=== PATIENT | male | born 1950 | race Caucasian/White ===

== ENCOUNTER 2025-02-19 14:27 | Inpatient (IN) | payer MEDICARE ==
[2025-02-19 14:56] LABS: Basophils # (A) 0.03 10*3/uL (0.00-0.10); Basophils % (A) 0.2 %; Eosinophils # (A) 0.04 10*3/uL (0.04-0.35); Eosinophils % (A) 0.3 %; HCT 39.5 % (39.6-50.0); HGB 13.5 g/dL (13.0-17.0); Lymphocytes # (A) 2.06 10*3/uL (0.90-5.00); Lymphocytes % (A) 14.3 %; MCH 32.4 pg (27.0-32.0); MCHC 34.2 g/dL (32.0-37.0); MCV 94.7 fL (80.0-97.0); Mean Platelet Volume 9.9 fL (9.5-12.2); Monocytes % (A) 6.9 %; Neutrophils % (A) 77.8 %; Platelet Count 244 10*3/uL (140-440); RBC 4.17 10*6/uL (4.40-5.60); RDW 14.7 % (11.5-14.5)
[2025-02-19 15:06] LABS: INR 1.3 (<1.2); Partial Thromboplastin Time 39.9 sec (22.0-30.0); Prothrombin Time 14.2 sec (10.0-12.5)
[2025-02-19] MEDS: HYDROmorphone 1 MG/ML 1 ML SYRINGE IVP STA ×2 (15:14→16:36)
[2025-02-19 15:24] LABS: ALT 17 U/L (4-49); AST 24 U/L (17-59); African American GFR (CKD) >90 (>60 ml/min/1.73 sqM); Albumin 2.9 g/dL (3.5-5.0); Alkaline Phosphatase 86 U/L (38-126); Anion Gap 11 mmol/L; Blood Urea Nitrogen 17 mg/dL (9-20); Calcium 8.2 mg/dL (8.4-10.2); Carbon Dioxide 20 mmol/L (22-30); Chloride 104 mmol/L (98-107); Glucose 151 mg/dL (74-99); Non-African American GFR(CKD) 84 (>60 ml/min/1.73 sqM); Sodium 135 mmol/L (137-145); Total Bilirubin 1.7 mg/dL (0.2-1.3); Total Protein 6.8 g/dL (6.3-8.2)
--- NOTE | 2025-02-19 15:30 | ED ---
General Adult HPI - General Chief complaint: Back Pain/Injury Stated complaint: Back pain, knee pain Time Seen by Provider: 02/19/25 14:29 Source: patient, EMS, RN notes reviewed, old records reviewed Mode of arrival: EMS Limitations: no limitations - History of Present Illness Initial comments: 74-year-old male presenting with low back pain which has worsened over the past 4 months. Patient was brought in by paramedics due to inability to ambulate s econdary to pain. He was given ketamine and route for pain control this did moderately improve his symptoms. He states he normally takes [place] but has not taken it in the past 24 hours. He is scheduled to follow-up with orthopedics regarding this acute on chronic back pain but has not seen them to date. He states he has a remote history of back surgery. He also complains of left knee pain and left ankle pain without specific injury. History is somewhat limited secondary to the patient being in moderate to severe pain. - Related Data Allergies Allergy/AdvReac Type Severity Reaction Status Date / Time No Known Allergies Allergy Verified 02/19/25 14:39 Review of Systems ROS Statement: Those systems with pertinent positive or pertinent negative responses have been documented in the HPI. ROS Other: All systems not noted in ROS Statement are negative. Past Medical History Past Medical History: Heart Failure, Hypertension Additional Past Medical History / Comment(s): gout, chronic back pain, cerebral palsy History of Any Multi-Drug Resistant Organisms: None Reported Past Surgical History: Back Surgery Past Psychological History: No Psychological Hx Reported Smoking Status: Current every day smoker Past Alcohol Use History: None Reported Past Drug Use History: None Reported General Exam Limitations: no limitations General appearance: alert, in distress Head exam: Present: atraumatic, normocephalic Eye exam: Present: normal appearance, PERRL ENT exam: Present: normal exam Neck exam: Present: normal inspection. Absent: tenderness, meningismus Respiratory exam: Present: normal lung sounds bilaterally. Absent: respiratory distress, wheezes Cardiovascular Exam: Present: regular rate, normal rhythm GI/Abdominal exam: Present: soft. Absent: distended, tenderness, guarding Extremities exam: Present: joint swelling (left Knee, left ankle) Back exam: Present: other (Exam limited by positioning, patient is unable to roll over) Neurological exam: Present: alert, oriented X3 Psychiatric exam: Present: agitated, anxious Skin exam: Present: warm, dry, intact Course Vital Signs 02/19/25 02/19/25 14:29 16:17 Temperature 98.4 F Pulse Rate 87 78 Respiratory 21 16 Rate Blood Pressure 151/98 147/84 O2 Sat by Pulse 96 98 Oximetry Medical Decision Making - Medical Decision Making Was pt. sent in by a medical professional or institution ([facility], AMUSEMENT MACHINE MECHANIC, urgent care, hospital, or skilled nursing...) When possible be specific @ -No Did you speak to anyone other than the patient for history (EMS, parent, family, police, friend...)? What history was obtained from this source @ -No Did you review nursing and triage notes (agree or disagree)? Why? @ -I reviewed and agree with nursing and triage notes Were old charts reviewed (outside hosp., previous admission, EMS record, old EKG, old radiological studies, urgent care reports/EKG's, skilled nursing records)? Report findings @ -No old charts were reviewed Differential Musculoskeletal Muscular strain, contusion, ligament sprain, fracture, arthritis, septic arthritis, bursitis, cellulitis, muscle spasm, nerve compression, DVT, arterial occlusion, herpes zoster, electrolyte abnormality, tumor.... This is not meant to be in all inclusive list EKG interpreted by me (3pts min.). @ -As above X-rays interpreted by me (1pt min.). @ -X-ray of the left ankle negative for displaced fracture CT interpreted by me (1pt min.). @ -CT lumbar spine negative for acute process, degenerative change with previous hardware U/S interpreted by me (1pt. min.). @ -None done What testing was considered but not performed or refused? (CT, X-rays, U/S, labs)? Why? @ -None What meds were considered but not given or refused? Why? @ -None Did you discuss the management of the patient with other professionals (professionals i.e. SACHI Hall, AMUSEMENT MACHINE MECHANIC, lab, RT, psych nurse, mental health social worker, vice president of academic affairs, teacher, fourth officer, watch case polisher)? Give summary @Dr. Ramy junior physician group Was smoking cessation discussed for >3mins.? @ -No Was critical care preformed (if so, how long)? @ -No Were there social determinants of health that impacted care today? How? (Homelessness, low income, unemployed, alcoholism, drug addiction, transportation, low edu. Level, literacy, decrease access to med. care, [facility], rehab)? @ -No Was there de-escalation of care discussed even if they declined (Discuss DNR or withdrawal of care, Hospice)? DNR status @ -No What co-morbidities impacted this encounter? (DM, HTN, Smoking, COPD, CAD, Cancer, CVA, ARF, Chemo, Hep., AIDS, mental health diagnosis, sleep apnea, morbid obesity)? @Chronic low back pain Was patient admitted / discharged? Hospital course, mention meds given and route, prescriptions, significant lab abnormalities, going to OR and other pertinent info. @74-year-old male with 4 months of worsening low back pain. Patient is an extremis upon arrival, had been given ketamine by paramedics with minimal improvement. Given Dilaudid in the emergency department able to obtain CT imaging which was negative for acute process. Patient will require admission for pain control and orthopedic evaluation. Undiagnosed new problem with uncertain prognosis? @ -No Drug Therapy requiring intensive monitoring for toxicity (Heparin, Nitro, Insulin, Cardizem)? @ -No Were any procedures done? @ -No Diagnosis/symptom? @Intractable lumbar back pain Acute, or Chronic, or Acute on Chronic? @Acute on chronic Uncomplicated (without systemic symptoms) or Complicated (systemic symptoms)? @ -Default Side effects of treatment? @ -No Exacerbation, Progression, or Severe Exacerbation? @ -No Poses a threat to life or bodily function? How? (Chest pain, [place], [place], pneumonia, PE, COPD, DKA, ARF, appy, cholecystitis, CVA, Diverticulitis, Homicidal, Suicidal, threat to staff... and all critical care pts) @ -[Yes, debility - Lab Data Result diagrams: 02/19/25 14:33 02/19/25 14:34 Lab Results 02/19/25 02/19/25 02/19/25 Range/Units 14:33 14:34 14:34 WBC 14.40 H (4.50-10.00) 10*3/uL RBC 4.17 L (4.40-5.60) 10*6/uL Hgb 13.5 (13.0-17.0) g/dL Hct 39.5 L (39.6-50.0) % MCV 94.7 (80.0-97.0) fL MCH 32.4 H (27.0-32.0) pg MCHC 34.2 (32.0-37.0) g/dL Plt Count 244 (140-440) 10*3/uL MPV 9.9 (9.5-12.2) fL Immature Gran % (Auto) 0.5 % Neutrophils % 77.8 % Lymphocytes % 14.3 % Monocytes % 6.9 % Eosinophils % 0.3 % Basophils % 0.2 % Immature Gran # 0.07 H (0.00-0.04) 10*3/uL Neutrophils # 11.20 H (1.80-7.70) 10*3/uL Lymphocytes # 2.06 (0.90-5.00) 10*3/uL Monocytes # 1.00 (0.20-1.00) 10*3/uL Eosinophils # 0.04 (0.04-0.35) 10*3/uL Basophils # 0.03 (0.00-0.10) 10*3/uL PT 14.2 H (10.0-12.5) sec INR 1.3 H (<1.2) APTT 39.9 H (22.0-30.0) sec Sodium 135 L (137-145) mmol/L Potassium 4.0 (3.5-5.1) mmol/L Chloride 104 (98-107) mmol/L Carbon Dioxide 20 L (22-30) mmol/L Anion Gap 11 mmol/L BUN 17 (9-20) mg/dL Creatinine 0.89 (0.66-1.25) mg/dL Est GFR (CKD-EPI)AfAm >90 (>60 ml/min/1.73 sqM) Est GFR (CKD-EPI)NonAf 84 (>60 ml/min/1.73 sqM) Glucose 151 H (74-99) mg/dL Calcium 8.2 L (8.4-10.2) mg/dL Total Bilirubin 1.7 H (0.2-1.3) mg/dL AST 24 (17-59) U/L ALT 17 (4-49) U/L Alkaline Phosphatase 86 (38-126) U/L Total Protein 6.8 (6.3-8.2) g/dL Albumin 2.9 L (3.5-5.0) g/dL Disposition Clinical Impression: Lumbar back pain, Chronic intractable pain Disposition: ADMITTED IP TO THIS [facility] Condition: Stable Is patient prescribed a controlled substance at d/c from ED?: No Referrals: Ryan Villalta DO [Primary Care Provider] - 1-2 days Time of Disposition: 16:44
--- NOTE | 2025-02-19 15:47 | CT ---
EXAMINATION TYPE: CT lumbar spine wo con DATE OF EXAM: 02/19/2025 3:36 PM COMPARISON: None. CLINICAL INDICATION: Male, 74 years old with history of severe pain; PHH, low back pain with radiatio n bilaterally to extremeties TECHNIQUE: Multiple axial images were obtained from the midportion of T11 through the sacroiliac elyse nts. Soft tissue and bone windows in coronal and sagittal planes were obtained and reviewed. 3-D ref ormats of the bones were created on a separate workstation and submitted for review. CT DLP: 1907.6 mGycm, Automated exposure control for dose reduction was used. FINDINGS: Partially visualized emphysematous changes versus chronic interstitial lung disease in the lower lobe s. Aortobiiliac endovascular stent graft. Previous cholecystectomy. Alignment: There are 5 lumbar type vertebral bodies within normal alignment. Bone: No evidence of fracture is identified. Posterior fusion hardware visualized spanning L3-L5 with L3-4 and L4-L5 intervertebral disc spacer de vices. Minimal anterolisthesis of L4 on L5 and minimal retrolisthesis of L5 on S1. Preserved lordotic curvature of the lumbosacral spine. Osseous structures appear demineralized. Discs: T12-L1: No spinal canal or neural foraminal stenosis is identified. L1-L2: No spinal canal or neural foraminal stenosis is identified. L2-L3: Facet arthropathy and ligamentum flavum hypertrophy cause mild to moderate bilateral neural fo raminal narrowing. No high-grade spinal canal stenosis. L3-L4: Severely limited evaluation of the spinal canal due to streak artifact. Within these limitatio ns, no definite high-grade spinal canal stenosis. No periprosthetic lucency or acute hardware defecat ion. L4-L5: Intervertebral disc spacer device. Severely limited evaluation of the spinal canal due to stre ak artifact. There is limitation, no definite high-grade spinal canal stenosis. L5-S1: No high-grade spinal canal stenosis. Other: None IMPRESSION: 1. No acute fracture or traumatic subluxation. 2. Posterior fusion hardware visualized spanning L3-L5 with L3-L4 and L4-L5 intervertebral disc spac er devices. No high-grade spinal canal stenosis. No acute hardware complication. [facility], , 02/19/2025 3:45 PM
--- NOTE | 2025-02-19 16:29 | XR ---
EXAMINATION TYPE: XR knee complete LT DATE OF EXAM: 02/19/2025 4:14 PM COMPARISON: None CLINICAL INDICATION: Male, 74 years old with history of pain and swelling; PHH, pain TECHNIQUE: XR knee complete LT views submitted.. FINDINGS: Questionable cortical step-off along the medial tibial plateau versus irregular osteophyte, seen on single view only.. Moderate tricompartmental right knee degenerative arthritis. Diffuse subc utaneous edema/swelling. Small suprapatellar joint effusion. IMPRESSION: 1. Subcutaneous edema surrounding the left knee with questionable cortical step-off along the medial tibial plateau. If there is underlying clinical concern for acute fracture, further evaluation with dedicated CT of the left knee would be recommended. 2. Moderate tricompartmental left knee degenerative arthritis and small suprapatellar joint effusion . [facility], , 02/19/2025 4:26 PM
--- NOTE | 2025-02-19 16:30 | XR ---
EXAMINATION TYPE: XR ankle complete LT DATE OF EXAM: 02/19/2025 4:15 PM COMPARISON: None CLINICAL INDICATION: Male, 74 years old with history of pain and swelling; PHH, pain TECHNIQUE: XR ankle complete LT; ankle is imaged in frontal, lateral and oblique projections. FINDINGS: Osseous structures are demineralized. No acute fracture or dislocation. Tibiotalar joint degenerative arthritic changes. Vascular calcifications. Numerous calcific densities adjacent to the medial malle olus, likely sequela of previous trauma. Soft tissue swelling/edema surrounding the left ankle. Sever e midfoot degenerative changes seen on lateral view. IMPRESSION: Subcutaneous edema without definite acute fracture or dislocation. [facility], , 02/19/2025 4:28 PM
[2025-02-19] MEDS ORDERED: ACETAMINOPHEN TAB 325 MG TAB PO PRN (16:40)
[2025-02-19] MEDS ORDERED: NALOXONE 0.4 MG/ML 1 ML VIAL IV PRN (16:40)
[2025-02-19] MEDS ORDERED: ONDANSETRON 4 MG/2 ML VIAL IVP PRN (16:40)
[2025-02-19] MEDS ORDERED: HYDROcodone/APAP 10-325MG 1 EACH TAB PO PRN (18:12)
--- NOTE | 2025-02-19 19:11 | P.HPIM ---
History of Present Illness H&P Date: 02/19/25 74 year old M with PMH of A Fib, Gout, HTN, chronic lower back pain presents with intractable back pain. Progressively getting worse over the past 4 months after sustaining a fall which resulted in him landing on his tailbone. Pain is 10/10, throbbing in nature with occasional radiation to bilateral lower extremities. Pain worse with movement and alleviated with rest. Takes [place] 10 Q2H at home. He denies any bladder or bowel incontinence, saddle anesthesia. No numbness/weakness/tingling of the extremities. He reports difficulties with his ADL and IADLs at home. In the ED he underwent extensive evaluation. BP 151/98, HR 87, T 98.4F, RR 21, 96% on RA. CBC, Coag panel, CMP significant for WBC 14.4, RBC 4.17, Hct 39.5, PT 14.2, INR 1.3, APTT 39.9, Na 135, bicarb 20, glu 151, Ca 8.2, T. Bili 1.7, alb 2.9. Ankle XR L shows edema. Knee XR L shows edema with questionable cortical step off along the medial tibial plateau. CT L spine shows no high grade spinal canal stenosis. Patient is admitted for intractable pain and Ortho evaluation. General: moderate distress, appears at stated age Derm: warm, dry Head: atraumatic, normocephalic, symmetric Mouth: no lip lesion, mucus membranes moist Cardiovascular: S1 S2 irreg. Systolic murmur. Lungs: Decreased BS bilaterally, no accessory muscle use Ext: no gross muscle atrophy, no edema, no contractures Neuro: No focal neurologic deficits. Psych: Alert and oriented. Based on my assessment of this patient, this patient meets a high complexity level of care. Intractable lower back pain with history of L3-5 fusion: Dilaudid 1 mg IV Q3H PRN pain, [place] 10 Q4H PRN pain. Fall precautions. PT and OT consult. Ortho consult. Leukocytosis: Likely reactive. No signs of active infection. Monitor fever profile. Supratherapeutic INR: Likely due to Pradaxa. A Fib: Pradaxa 150 mg PO BID. Verapamil 180 mg PO BID. Gout: Allopurinol 100 mg PO BID. HTN: Lasix 40 mg PO QD. Losartan 25 mg PO QD. CODE STATUS: FULL CODE DVT Prophylaxis: Pradaxa GI Prophylaxis: Designated medical POA if patient is not able to make medical decisions for themselves: I have reviewed the following medical sales consultant notes: ED note. I have reviewed the results of the following tests: As above. I have ordered the following tests: As above. I have discussed the care of this patient with the following independent historian: MONISHA. I have independently interpreted the following test below: I have discussed the management of this patient with the following physician: ED physician. Past Medical History Past Medical History: Heart Failure, Hypertension Additional Past Medical History / Comment(s): gout, chronic back pain, cerebral palsy History of Any Multi-Drug Resistant Organisms: None Reported Past Surgical History: Back Surgery Past Psychological History: No Psychological Hx Reported Smoking Status: Current some day smoker Past Alcohol Use History: None Reported Past Drug Use History: None Reported - Past Family History Mother Family Medical History: No Reported History Medications and Allergies Home Medications Medication Instructions Recorded Confirmed Type Cetirizine HCl [Zyrtec] 10 mg PO DAILY 02/19/25 02/19/25 History Dabigatran [Pradaxa] 150 mg PO BID 02/19/25 02/19/25 History Furosemide [Lasix] 40 mg PO DAILY 02/19/25 02/19/25 History HYDROcodone/APAP 10-325MG [[place] 1 tab PO Q2H MDD 8 tabs 02/19/25 02/19/25 History 10-325] Losartan [Cozaar] 25 mg PO DAILY 02/19/25 02/19/25 History Meclizine [Antivert] 25 mg PO TID PRN 02/19/25 02/19/25 History Potassium Chloride ER [K-Dur 20] 20 meq PO DAILY 02/19/25 02/19/25 History Verapamil HCl [Verapamil ER] 180 mg PO BID 02/19/25 02/19/25 History allopurinoL 100 mg PO BID 02/19/25 02/19/25 History Allergies Allergy/AdvReac Type Severity Reaction Status Date / Time No Known Allergies Allergy Verified 02/19/25 17:20 Physical Exam Vitals: Vital Signs Temp Pulse Pulse Resp BP BP Pulse Ox 02/19/25 17:51 97.8 F 90 20 151/83 96 02/19/25 17:09 98.2 F 85 18 156/79 96 02/19/25 16:17 78 16 147/84 98 02/19/25 14:29 98.4 F 87 21 151/98 96 Intake and Output 02/19/25 02/19/25 02/19/25 06:59 14:59 22:59 Intake Total 60 Output Total 200 Balance -140 Intake: Oral 60 Output: Urine 200 Other: Weight 111.13 kg 111.13 kg Results CBC & Chem 7: 02/19/25 14:33 02/19/25 14:34 Labs: Abnormal Lab Results - Last 24 Hours (Table) 02/19/25 02/19/25 02/19/25 Range/Units 14:33 14:34 14:34 WBC 14.40 H (4.50-10.00) 10*3/uL RBC 4.17 L (4.40-5.60) 10*6/uL Hct 39.5 L (39.6-50.0) % MCH 32.4 H (27.0-32.0) pg Immature Gran # 0.07 H (0.00-0.04) 10*3/uL Neutrophils # 11.20 H (1.80-7.70) 10*3/uL PT 14.2 H (10.0-12.5) sec INR 1.3 H (<1.2) APTT 39.9 H (22.0-30.0) sec Sodium 135 L (137-145) mmol/L Carbon Dioxide 20 L (22-30) mmol/L Glucose 151 H (74-99) mg/dL Calcium 8.2 L (8.4-10.2) mg/dL Total Bilirubin 1.7 H (0.2-1.3) mg/dL Albumin 2.9 L (3.5-5.0) g/dL Thrombosis Risk Factor Assmnt - Choose All That Apply Each Risk Factor Represents 3 Points: Age 75 years or older Thrombosis Risk Factor Assessment Total Risk Factor Score: 3 Thrombosis Risk Factor Assessment Level: Moderate Risk
[2025-02-19] MEDS: allopurinoL 100 MG TAB PO SCH (19:38)
[2025-02-19] MEDS: DABIGATRAN 150 MG CAP PO SCH (19:38)
[2025-02-19] MEDS: VERAPAMIL SR 180 MG TABLET.ER PO SCH (19:38)
[2025-02-19] MEDS: HYDROcodone/APAP 10-325MG 1 EACH TAB PO SCH (19:38)
[2025-02-19] MEDS: HYDROmorphone 1 MG/ML 1 ML SYRINGE IVP PRN (19:40)
[2025-02-19] MEDS: MECLIZINE 25 MG TAB PO PRN (21:16)
[2025-02-19] MEDS: ARTIFICIAL TEARS-HYPROMELLOSE DROPS 15 ML BTL BOTH EYES PRN (21:16)
[2025-02-20] MEDS: CYCLOBENZAPRINE 5 MG TAB PO STA (05:15)
[2025-02-20] MEDS: tiZANidine 4 MG TAB PO ONE (06:19)
[2025-02-20] MEDS: LOSARTAN 25 MG TAB PO SCH (07:50)
[2025-02-20] MEDS: FUROSEMIDE 40 MG TAB PO SCH (07:50)
[2025-02-20] MEDS: POTASSIUM CHLORIDE ER 20 MEQ TAB.ER PO SCH (07:50)
--- NOTE | 2025-02-20 10:51 | P.CNOR ---
History of Present Illness - [facility] Consult date: 02/20/25 Consult reason: low back pain History of present illness: This is a 74-year-old male admitted with intractable low back pain. He has history of lumbar fusion from L3-5 many years ago. He states that Dr. Halle Smith did his surgery. He states that he has been told that his "hardware is falling apart". He had a fall approximately 4 months ago where he lost his balance and landed directly on his tailbone. He states that he has had pain in his low back ever since that fall which is gotten progressively worse. He also complains of left knee and ankle pain. He has history of cerebral palsy. He denies numbness or tingling down the legs. He has occasional pain down into the legs from his back. He denies bowel or bladder dysfunction. Past Medical History Past Medical History: Heart Failure, Hypertension Additional Past Medical History / Comment(s): gout, chronic back pain, cerebral palsy History of Any Multi-Drug Resistant Organisms: None Reported Past Surgical History: Back Surgery Past Psychological History: No Psychological Hx Reported Smoking Status: Current some day smoker Past Alcohol Use History: None Reported Past Drug Use History: None Reported - Past Family History Mother Family Medical History: No Reported History Medications and Allergies Home Medications Medication Instructions Recorded Confirmed Type Cetirizine HCl [Zyrtec] 10 mg PO DAILY 02/19/25 02/19/25 History Dabigatran [Pradaxa] 150 mg PO BID 02/19/25 02/19/25 History Furosemide [Lasix] 40 mg PO DAILY 02/19/25 02/19/25 History HYDROcodone/APAP 10-325MG [[place] 1 tab PO Q2H MDD 8 tabs 02/19/25 02/19/25 History 10-325] Losartan [Cozaar] 25 mg PO DAILY 02/19/25 02/19/25 History Meclizine [Antivert] 25 mg PO TID PRN 02/19/25 02/19/25 History Potassium Chloride ER [K-Dur 20] 20 meq PO DAILY 02/19/25 02/19/25 History Verapamil HCl [Verapamil ER] 180 mg PO BID 02/19/25 02/19/25 History allopurinoL 100 mg PO BID 02/19/25 02/19/25 History Allergies Allergy/AdvReac Type Severity Reaction Status Date / Time No Known Allergies Allergy Verified 02/19/25 17:20 Physical Examination This is a 74-year-old male in no acute distress. He is alert and oriented x 3. Exam of the thoracic and lumbar spine reveal a well-healed scar about the lower lumbar region. There are no open wounds or abrasions. There is tenderness to palpation about the lower lumbar and sacral spine. Nontender over the surgical scar. Exam of the lower extremities reveals a left knee effusion. There is no erythema or ecchymosis. He has full range of motion of bilateral knees. There is minimal tenderness with palpation about the medial and lateral joint line bilaterally. There is a scar about the medial foot. He has difficulty moving the left ankle. Nontender over the left ankle. Full foot and ankle motion on the right. Neurovascular status to the lower extremities is intact. Results X-rays of the left knee reveals cortical irregularity and cystic changes to the proximal tibia on the medial aspect. There are no obvious acute fractures. There is moderate degenerative change noted. X-rays of the left ankle reveal diffuse osteoarthritis and multiple calcifications. No acute fractures noted. CT of the lumbar spine reveals diffuse degenerative changes and spurring. There is a posterior lumbar fusion noted from L3-L5. There is no gross lucency of the hardware noted on CT scan. There are no acute fractures noted. - Labs Labs: Abnormal Lab Results - Last 24 Hours (Table) 02/19/25 02/19/25 02/19/25 Range/Units 14:33 14:34 14:34 WBC 14.40 H (4.50-10.00) 10*3/uL RBC 4.17 L (4.40-5.60) 10*6/uL Hct 39.5 L (39.6-50.0) % MCH 32.4 H (27.0-32.0) pg Immature Gran # 0.07 H (0.00-0.04) 10*3/uL Neutrophils # 11.20 H (1.80-7.70) 10*3/uL PT 14.2 H (10.0-12.5) sec INR 1.3 H (<1.2) APTT 39.9 H (22.0-30.0) sec Sodium 135 L (137-145) mmol/L Carbon Dioxide 20 L (22-30) mmol/L Glucose 151 H (74-99) mg/dL Calcium 8.2 L (8.4-10.2) mg/dL Total Bilirubin 1.7 H (0.2-1.3) mg/dL Albumin 2.9 L (3.5-5.0) g/dL H & H 02/19/25 Range/Units 14:33 Hgb 13.5 (13.0-17.0) g/dL Hct 39.5 L (39.6-50.0) % Coagulation 02/19/25 Range/Units 14:34 INR 1.3 H (<1.2) Result Diagrams: 02/19/25 14:33 02/19/25 14:34 Assessment and Plan (1) Left knee pain Current Visit: Yes Status: Acute Code(s): M25.562 - PAIN IN LEFT KNEE SNOMED Code(s): 0205206793 (2) Chronic intractable pain Current Visit: Yes Status: Acute Code(s): G89.29 - OTHER CHRONIC PAIN SNOMED Code(s): 995841361 (3) Lumbar back pain Current Visit: Yes Status: Acute Code(s): M54.50 - LOW BACK PAIN, UNSPECIFIED SNOMED Code(s): 626420261 Plan: The clinical and x-ray findings are discussed with the patient. With regard to his low back, it is recommended that he be evaluated by pain management. The patient is requesting that he have back surgery on this visit to have his hardware exchanged. I explained to the patient that this is not recommended at this time. There is no gross lucency or failure of the hardware. He will follow-up with spine service. With regard to the left knee pain it is recommended he have a CT scan for further evaluation. There is suspicion for a subacute/remote fracture of the proximal tibia. We will follow-up with CT scan results.
--- NOTE | 2025-02-20 11:45 | P.PN ---
Subjective Progress Note Date: 02/20/25 74 year old M with PMH of A Fib, Gout, HTN, chronic lower back pain presents with intractable back pain. Progressively getting worse over the past 4 months after sustaining a fall which resulted in him landing on his tailbone. Pain is 10/10, throbbing in nature with occasional radiation to bilateral lower extremities. Pain worse with movement and alleviated with rest. Takes [place] 10 Q2H at home. He denies any bladder or bowel incontinence, saddle anesthesia. No numbness/weakness/tingling of the extremities. He reports difficulties with his ADL and IADLs at home. In the ED he underwent extensive evaluation. BP 151/98, HR 87, T 98.4F, RR 21, 96% on RA. CBC, Coag panel, CMP significant for WBC 14.4, RBC 4.17, Hct 39.5, PT 14.2, INR 1.3, APTT 39.9, Na 135, bicarb 20, glu 151, Ca 8.2, T. Bili 1.7, alb 2.9. Ankle XR L shows edema. Knee XR L shows edema with questionable cortical step off along the medial tibial plateau. CT L spine shows no high grade spinal canal stenosis. Patient is admitted for intractable pain and Ortho evaluation. 02/20 Patient was seen and examined. Reports continued lower back pain. Ortho recommends CT L knee and pain management consult. No new labs are done today. BP 100/61, HR 62, RR 18, T 97.5F, 97% on RA. General: mild distress, appears at stated age Derm: warm, dry Head: atraumatic, normocephalic, symmetric Mouth: no lip lesion, mucus membranes moist Cardiovascular: S1 S2 irreg. No murmur. Lungs: Decreased BS bilaterally, no accessory muscle use Ext: no gross muscle atrophy, no edema, no contractures Neuro: No focal neurologic deficits. Psych: Alert and oriented. Based on my assessment of this patient, this patient meets a high complexity level of care. Intractable lower back pain with history of L3-5 fusion: Dilaudid 1 mg IV Q3H PRN pain, [place] 10 Q4H PRN pain. Fall precautions. PT and OT consulted. Ortho and Pain management consulted. L knee pain: CT L knee ordered by Ortho to evaluate abnormal findings on XR. Leukocytosis: Likely reactive. No signs of active infection. Monitor fever profile. Supratherapeutic INR: Likely due to Pradaxa. Hyperbilirubinemia: Repeat CMP in the morning. Consider further workup if still elevated. A Fib: Pradaxa 150 mg PO BID. Verapamil 180 mg PO BID. Gout: Allopurinol 100 mg PO BID. HTN: Lasix 40 mg PO QD. Losartan 25 mg PO QD. CODE STATUS: FULL CODE DVT Prophylaxis: Pradaxa GI Prophylaxis: Designated medical POA if patient is not able to make medical decisions for themselves: I have reviewed the following solution consultant notes: Ortho note. I have reviewed the results of the following tests: I have ordered the following tests: CBC and CMP in the AM. I have discussed the care of this patient with the following independent historian: I have independently interpreted the following test below: I have discussed the management of this patient with the following physician: Objective - Vital Signs Vital signs: Vital Signs Temp 97.5 F L 02/20/25 08:00 Pulse 62 02/20/25 08:00 Resp 18 02/20/25 08:00 BP 100/61 02/20/25 08:00 Pulse Ox 97 02/20/25 08:00 FiO2 Intake & Output 02/19/25 02/20/25 02/20/25 18:59 06:59 18:59 Intake Total 60 Output Total 200 600 Balance -140 -600 Weight 111.13 kg Intake: Oral 60 Output: Urine 200 600 - Labs CBC & Chem 7: 02/19/25 14:33 02/19/25 14:34 Labs: Abnormal Lab Results - Last 24 Hours (Table) 02/19/25 02/19/25 02/19/25 Range/Units 14:33 14:34 14:34 WBC 14.40 H (4.50-10.00) 10*3/uL RBC 4.17 L (4.40-5.60) 10*6/uL Hct 39.5 L (39.6-50.0) % MCH 32.4 H (27.0-32.0) pg Immature Gran # 0.07 H (0.00-0.04) 10*3/uL Neutrophils # 11.20 H (1.80-7.70) 10*3/uL PT 14.2 H (10.0-12.5) sec INR 1.3 H (<1.2) APTT 39.9 H (22.0-30.0) sec Sodium 135 L (137-145) mmol/L Carbon Dioxide 20 L (22-30) mmol/L Glucose 151 H (74-99) mg/dL Calcium 8.2 L (8.4-10.2) mg/dL Total Bilirubin 1.7 H (0.2-1.3) mg/dL Albumin 2.9 L (3.5-5.0) g/dL
--- NOTE | 2025-02-20 12:19 | CT ---
EXAMINATION TYPE: CT knee LT wo con CT DLP: 395 mGycm, Automated exposure control for dose reduction was used. DATE OF EXAM: 02/20/2025 12:09 PM COMPARISON: Left knee radiograph 02/19/2025 CLINICAL INDICATION:Male, 74 years old with history of abnormal xray, hx of remote trauma; PHH, Abnor mal X-ray, history of remote trauma TECHNIQUE: Axial images were obtained of the left knee without the use of IV contrast. Additional co cindy and sagittal reformatted images and soft tissue and bone window were obtained for review. FINDINGS: Diffuse bone demineralization. There is no evidence of fracture, subluxation, or dislocatio n. Small suprapatellar and infrapatellar spurring. Small to moderate size suprapatellar joint effusio n. There is some hyperdense structure identified within the medial aspect of the joint effusion. Smal l Fallon's cyst measuring up to 1.7 cm. Prepatellar subcutaneous edema. No radiopaque foreign body kami ntified. IMPRESSION: 1. No acute fracture or dislocation. 2. Small to moderate size suprapatellar joint effusion with hemarthrosis. 3. Prepatellar subcutaneous edema. 4. Small Fallon's cyst. [facility], , 02/20/2025 12:17 PM
[2025-02-21 04:41] LABS: HCT 34.8 % (39.6-50.0); HGB 11.2 g/dL (13.0-17.0); MCH 31.9 pg (27.0-32.0); MCHC 32.2 g/dL (32.0-37.0); MCV 99.1 fL (80.0-97.0); Mean Platelet Volume 9.7 fL (9.5-12.2); Platelet Count 225 10*3/uL (140-440); RBC 3.51 10*6/uL (4.40-5.60); RDW 15.5 % (11.5-14.5); WBC 11.89 10*3/uL (4.50-10.00)
[2025-02-21 04:57] LABS: ALT 18 U/L (4-49); AST 23 U/L (17-59); African American GFR (CKD) 65 (>60 ml/min/1.73 sqM); Albumin 2.7 g/dL (3.5-5.0); Albumin/Globulin Ratio 0.8; Alkaline Phosphatase 79 U/L (38-126); Anion Gap 9 mmol/L; Blood Urea Nitrogen 29 mg/dL (9-20); Calcium 8.3 mg/dL (8.4-10.2); Carbon Dioxide 25 mmol/L (22-30); Chloride 100 mmol/L (98-107); Globulin 3.6 g/dL; Glucose 117 mg/dL (74-99); Non-African American GFR(CKD) 56 (>60 ml/min/1.73 sqM); Potassium 4.3 mmol/L (3.5-5.1); Sodium 134 mmol/L (137-145); Total Bilirubin 1.1 mg/dL (0.2-1.3); Total Protein 6.3 g/dL (6.3-8.2)
--- NOTE | 2025-02-21 09:14 | P.PN ---
Subjective Progress Note Date: 02/21/25 Principal diagnosis: Low back pain, left knee pain. This is a 74-year-old male admitted with intractable low back pain. He has history of lumbar fusion from L3-5 many years ago. He states that Dr. Neri and Dr. Smith did his surgery. He states that he has been told that his "hardware is falling apart". He had a fall approximately 4 months ago where he lost his balance and landed directly on his tailbone. He states that he has had pain in his low back ever since that fall which is gotten progressively worse. He also complains of left knee and ankle pain. He has history of cerebral palsy. He denies numbness or tingling down the legs. He has occasional pain down into the legs from his back. He denies bowel or bladder dysfunction. 02/21/2025: The patient continues to complain of severe low back pain. He had a CT of the left knee which is unremarkable. Pain management has been consulted for possible lumbar BROCK. Vital signs are stable. Objective - Vital Signs Vital signs: Vital Signs Temp 97.6 F 02/21/25 07:41 Pulse 72 02/21/25 07:41 Resp 19 02/21/25 07:41 BP 121/62 02/21/25 07:41 Pulse Ox 95 02/21/25 07:41 FiO2 Intake & Output 02/20/25 02/21/25 02/21/25 18:59 06:59 18:59 Intake Total 720 Output Total 650 500 Balance 70 -500 Intake: Oral 720 Output: Urine 650 500 - Exam This is a 74-year-old male in no acute distress. He is alert and oriented x 3. Exam of the thoracic and lumbar spine reveal a well-healed scar about the lower lumbar region. There are no open wounds or abrasions. There is tenderness to palpation about the lower lumbar and sacral spine. Nontender over the surgical scar. Exam of the lower extremities reveals a left knee effusion. There is no erythem a or ecchymosis. He has full range of motion of bilateral knees. There is minimal tenderness with palpation about the medial and lateral joint line bilaterally. There is a scar about the medial foot. He has difficulty moving the left ankle. Nontender over the left ankle. Full foot and ankle motion on the right. Neurovascular status to the lower extremities is intact. - Labs CBC & Chem 7: 02/21/25 03:52 02/21/25 03:52 Labs: Abnormal Lab Results - Last 24 Hours (Table) 02/21/25 02/21/25 Range/Units 03:52 03:52 WBC 11.89 H (4.50-10.00) 10*3/uL RBC 3.51 L (4.40-5.60) 10*6/uL Hgb 11.2 L (13.0-17.0) g/dL Hct 34.8 L (39.6-50.0) % MCV 99.1 H (80.0-97.0) fL RDW 15.5 H (11.5-14.5) % Sodium 134 L (137-145) mmol/L BUN 29 H (9-20) mg/dL Glucose 117 H (74-99) mg/dL Calcium 8.3 L (8.4-10.2) mg/dL Albumin 2.7 L (3.5-5.0) g/dL Assessment and Plan (1) Left knee pain Current Visit: Yes Status: Acute Code(s): M25.562 - PAIN IN LEFT KNEE SNOMED Code(s): 9753610923 (2) Chronic intractable pain Current Visit: Yes Status: Acute Code(s): G89.29 - OTHER CHRONIC PAIN SNOMED Code(s): 624401585 (3) Lumbar back pain Current Visit: Yes Status: Acute Code(s): M54.50 - LOW BACK PAIN, UNSPECIFIED SNOMED Code(s): 513653060 Plan: The clinical and x-ray findings are discussed with the patient. With regard to his low back, it is recommended that he be evaluated by pain management. He is requesting a back brace for support which has been ordered. He does not need to wear the brace at all times. I recommend he wear it when he is ambulating for comfort but it is not absolutely necessary. He is also requesting a knee brace for comfort. A hinged wraparound knee brace is ordered for the left knee which he may wear as needed for comfort. He will follow-up with our service as needed.
--- NOTE | 2025-02-21 11:02 | P.PN ---
Subjective Progress Note Date: 02/21/25 Hospital Course: 74 year old M with PMH of A Fib, Gout, HTN, chronic lower back pain presents w ith intractable back pain. Progressively getting worse over the past 4 months after sustaining a fall which resulted in him landing on his tailbone. Pain is 10/10, throbbing in nature with occasional radiation to bilateral lower extremities. Pain worse with movement and alleviated with rest. Takes [place] 10 Q2H at home. He denies any bladder or bowel incontinence, saddle anesthesia. No numbness/weakness/tingling of the extremities. He reports difficulties with his ADL and IADLs at home. In the ED he underwent extensive evaluation. BP 151/98, HR 87, T 98.4F, RR 21, 96% on RA. CBC, Coag panel, CMP significant for WBC 14.4, RBC 4.17, Hct 39.5, PT 14.2, INR 1.3, APTT 39.9, Na 135, bicarb 20, glu 151, Ca 8.2, T. Bili 1.7, alb 2.9. Ankle XR L shows edema. Knee XR L shows edema with questionable cortical step off along the medial tibial plateau. CT L spine shows no high grade spinal canal stenosis. Patient is admitted for intractable pain and Ortho evaluation as well as pain medicine evaluation. Left knee CT was ordered to further evaluate x-ray abnormalities, showed no acute fracture or dislocation, small to moderate-sized suprapatellar joint effusion with hemarthrosis, prepatellar subcutaneous edema and small Fallon's cyst. 02/21: Patient seen and examined at bedside, continues to complain of lower back pain and left knee pain. He requests back surgery. Pain subsides with pain medications but no complete relief. Patient has daily bowel movements. Orthopedic surgery ordered back brace and knee brace per patient request. Pain medicine recommendations pending. Leukocytosis improving, hemoglobin dropped from 13.5-11.2, no signs of bleeding, he sodium 134, creatinine 1.25 Pertinent positives and negatives as discussed above, a complete review of systems was performed and all other systems are negative. Vitals Signs Reviewed. Afebrile, heart rate in 70s, BP 121/62, satting well on room air General: [nontoxic], [no distress], [appears at stated age], obese Derm: [warm], [dry] Head: [atraumatic], [normocephalic], [symmetric] Eyes: [EOMI], [no lid lag], [anicteric sclera] Mouth: [no lip lesion], [mucus membranes moist] Cardiovascular: [S1S2 reg], [no murmur] Lungs: [CTA bilateral], [no rhonchi, no rales] , [no accessory muscle use] Abdominal: [soft], [ nontender to palpation], [no guarding], [no appreciable organomegaly] Ext: [no gross muscle atrophy], [no edema], [no contractures] left knee swollen, decreased ROM, tenderness palpation, 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 Neuro: [ CN II-XI grossly intact], [no focal neuro deficits] Psych: [Alert], [oriented], [appropriate affect] Assessment and Plan: Intractable lower back pain History of L3-L5 fusion -No high-grade stenosis on CT - Orthopedic surgery following, ordered back brace per patient's request - Pain medicine consulted, appreciate recommendations - Continue current pain management, home [place] 10 mg every 4 hour scheduled, Dilaudid 0.5 mg every 3 hours as needed for moderate pain and 1 mg every 3 hours as needed for severe pain - PT OT Acute anemia -Globin dropped from 13.5-11.2 -Will recheck hemoglobin in the afternoon and in the morning -No signs of active bleeding Left knee pain Left knee effusion - Orthopedic surgery following, ordered knee brace per patient's request, no other interventions recommended Leukocytosis likely reactive, no signs of infection - Monitor daily CBC, fevers Suprapubic INR likely in the settings of Pradaxa Hyperbilirubinemia, resolved A-fib on Pradaxa -Continue home Pradaxa 150 mg p.o. twice daily, verapamil 180 mg p.o. twice daily Gout: Continue allopurinol 100 mg p.o. twice daily Hypertension: Continue Lasix 40 mg p.o. daily, losartan 25 mg p.o. daily I have reviewed the following eligibility consultant notes: Ortho I have reviewed the results of the following tests: I have ordered the following tests: CBC timed and AM, BMP I have discussed the care of this patient with the following independent historian: I have independently interpreted the following test below: I have discussed the management of this patient with the following physician: DVT ppx: Pradaxa Code status: Full code Anticipated discharge place: TBD Anticipated discharge time: TBD Objective - Vital Signs Vital signs: Vital Signs Temp 97.6 F 02/21/25 07:41 Pulse 72 02/21/25 07:41 Resp 19 02/21/25 07:41 BP 121/62 02/21/25 07:41 Pulse Ox 95 02/21/25 07:41 FiO2 Intake & Output 02/20/25 02/21/25 02/21/25 18:59 06:59 18:59 Intake Total 720 Output Total 650 500 Balance 70 -500 Intake: Oral 720 Output: Urine 650 500 - Labs CBC & Chem 7: 02/21/25 03:52 02/21/25 03:52 Labs: Abnormal Lab Results - Last 24 Hours (Table) 02/21/25 02/21/25 Range/Units 03:52 03:52 WBC 11.89 H (4.50-10.00) 10*3/uL RBC 3.51 L (4.40-5.60) 10*6/uL Hgb 11.2 L (13.0-17.0) g/dL Hct 34.8 L (39.6-50.0) % MCV 99.1 H (80.0-97.0) fL RDW 15.5 H (11.5-14.5) % Sodium 134 L (137-145) mmol/L BUN 29 H (9-20) mg/dL Glucose 117 H (74-99) mg/dL Calcium 8.3 L (8.4-10.2) mg/dL Albumin 2.7 L (3.5-5.0) g/dL
[2025-02-21 16:02] VITALS: BMI 34.2
[2025-02-21 20:34] LABS: HCT 37.1 % (39.6-50.0); MCH 32.3 pg (27.0-32.0); MCHC 32.3 g/dL (32.0-37.0); Mean Platelet Volume 9.7 fL (9.5-12.2); Platelet Count 218 10*3/uL (140-440); RBC 3.71 10*6/uL (4.40-5.60); RDW 15.3 % (11.5-14.5); WBC 10.98 10*3/uL (4.50-10.00)
[2025-02-22 08:02] LABS: Basophils # (A) 0.02 X 10*3/uL (0.00-0.10); Basophils % (A) 0.2 %; Eosinophils # (A) 0.09 X 10*3/uL (0.04-0.35); Eosinophils % (A) 0.7 %; HCT 34.7 % (39.6-50.0); HGB 11.4 g/dL (13.0-17.0); Lymphocytes # (A) 2.08 X 10*3/uL (0.90-5.00); MCH 32.1 pg (27.0-32.0); MCHC 32.9 g/dL (32.0-37.0); MCV 97.7 FL (80.0-97.0); Monocytes # (A) 0.84 X 10*3/uL (0.20-1.00); Monocytes % (A) 6.8 %; NRBC Per 100 WBC 0 X 10*3/uL (0.00-0.01); Neutrophils # (A) 9.17 X 10*3/uL (1.80-7.70); Neutrophils % (A) 74.7 %; Platelet Count 244 X 10*3/uL (140-440); RBC 3.55 X 10*6/uL (4.40-5.60); RDW 15.2 % (11.5-14.5); WBC 12.27 X 10*3/uL (4.50-10.00)
[2025-02-22 08:08] LABS: BUN/Creat Ratio 21.18 Ratio (12.00-20.00); Blood Urea Nitrogen 23.3 mg/dL (9.0-27.0); Carbon Dioxide 20.3 mmol/L (21.6-31.8); Chloride 103 mmol/L (96-109); Glucose 123 mg/dL (70-110); Potassium 4.3 mmol/L (3.5-5.5); Sodium 135 mmol/L (135-145)
--- NOTE | 2025-02-22 12:19 | P.PAINPG ---
Subjective Progress Note Date: 02/22/25 The patient cannot have any epidural steroid injection done at this time because of his recent consumption of Pradaxa on February 20, 2025. Objective - Vital Signs Vital signs: Vital Signs Temp 98.4 F 02/22/25 07:40 Pulse 62 02/22/25 07:40 Resp 19 02/22/25 07:40 BP 123/71 02/22/25 07:40 Pulse Ox 96 02/22/25 07:40 FiO2 Intake & Output 02/21/25 02/22/25 02/22/25 18:59 06:59 18:59 Intake Total 480 240 Output Total 500 Balance -20 240 Weight 111.13 kg Intake: Oral 480 240 Output: Urine 500 Other: # Voids 2 # Bowel Movements 1 1 - Labs CBC & Chem 7: 02/22/25 05:29 02/22/25 05:29 Labs: Abnormal Lab Results - Last 24 Hours (Table) 02/21/25 02/22/25 02/22/25 Range/Units 20:24 05:29 05:29 WBC 10.98 H 12.27 H (4.50-10.00) 10*3/uL RBC 3.71 L 3.55 L (4.40-5.60) 10*6/uL Hgb 12.0 L 11.4 L (13.0-17.0) g/dL Hct 37.1 L 34.7 L (39.6-50.0) % MCV 100.0 H 97.7 H (80.0-97.0) fL MCH 32.3 H 32.1 H (27.0-32.0) pg RDW 15.3 H 15.2 H (11.5-14.5) % Immature Gran # 0.07 H (0.00-0.04) X 10*3/uL Neutrophils # 9.17 H (1.80-7.70) X 10*3/uL Carbon Dioxide 20.3 L (21.6-31.8) mmol/L BUN/Creatinine Ratio 21.18 H (12.00-20.00) Ratio Glucose 123 H (70-110) mg/dL Calcium 8.0 L (8.7-10.3) mg/dL PQRS Measure Charge Sheet Comment: HISTORY OF PRESENT ILLNESS: A 74 yr old inpatient male as a referral from Dr Miles presents today w severe LBP > 4 mo but more pronounced since fall 4 days ago secondary to L3-L5 fusion, L4-L5 anterolisthesis, L5-S1 retrolisthesis, spondylosis and facet arthropathy without myelopathy for evaluation. Pt states pain level is provoked at 9 /10 in intensity, constant, localized in the lower lumbar spine, predominantly axial, sharp in character w occasional shooting pain towards the BL ankles. Pain is provoked by any movement. Pain is alleviated by medications, repositioning and rest . PMH: OA, HTN, CHF, Gout, Cerebral Palsy PSH: L3-L5 Fusion (2014) SH: Daily tobacco use, No ETOH use, No illicit drug use FH: Mo- No Reported History All: See list Medications include Dilaudid 0.5mg IVP q3h prn, [place] 10/325mg q6h prn, Tyl 650mg q6h prn REVIEW OF ORGAN SYSTEMS: CONSTITUTIONAL: No fevers or chills. No recent weight loss. NEUROLOGICAL: + numbness and tingling along the distal extremities. No seizure disorders or headaches. MUSCULOSKELETAL: + pain PSYCHIATRIC: Denies current depression or suicidal thoughts. Physical Examinations : Constitutional : Cooperative , not in acute distress . Neurologic : Cranial nerve II to XII intact. No focal neurological deficits. Psychiatric : alert & oriented x 3. Matching mood & appropriate affect. Judgment & insight intact. Musculoskeletal : Cervical Spine Motor strength in the deltoid and biceps: Normal right side. Normal Left side Motor strength biceps and the wrist extensors: Normal right side . Normal left side Motor strength in the triceps muscle: Normal right side. Normal left side Deep tendon reflexes: Normal at the biceps. Normal at Brachioradialis. Normal at triceps Vertebral body tenderness to deep palpation over Cervical facet loading test: positive bilaterally Spurling test: positive bilaterally Neck distraction test: positive bilaterally Acosta sign: positive bilaterally Lumbar spine +Incisional scar Motor strength lower extremities ,thigh and legs 5/5 Right side , 5/5 Left side Deep tendon reflexes : Normal Knee Jerk. Normal Ankle Jerk Vertebral body tenderness over L5 Faustin Test positive BL L5-S1 Lumbar facet Loading Test: positive Right / positive Left Range of motion of the lumbar spine Flexion 30 degrees, extension 10 degrees Straight Leg Raise test: Left< Right positive at <30 degrees Betsy test: positive right / positive left. Severe tenderness over the Sacroiliac joint on the Right / Left sides Gaenslen test: positive bilaterally Seated flexion test: positive bilaterally. Sacral spine : Severe tenderness over the Sacroiliac joint: right side / left side Range of motion: Flexion of the lumbar spine <60 degrees Range of motion: Extension of the lumbar spine <20 degrees Gaenslen's Test positive Betsy test: positive right side / left side Thigh Thrust Test Sacral Thrust Test Imaging: CT non contrast lumbar spine from 02/19/25 reviewed Assessment/ Plan : L3-L5 Fusion, L4-L5 anterolisthesis, L5-S1 retrolisthesis, spondylosis and facet arthropathy without myelopathy Recommendation of BROCK L5-S1 #1. Risks, benefits of procedure discussed and patient verbalized understanding. Admits to anti- coagulant use or medical history of diabetes. Protocol for discontinuation/ continuation of medications gerardo procedure discussed. All questions answered. I have spent greater than 30 minutes on patient care today. Dr Louis was available by phone for the evaluation of this patient. The time was used to review the medical records including relevant urine studies and Prescription history (MAPs), review of the available imaging, evaluation and examination of t he patient, coordination of care with the medical staff and if applicable referring physicians, as well as creation of the medical record - Pain Location Back Non-Pharmacological Interventions: Darkened Room, Distraction Pharmacological Interventions: PRN Medication, Scheduled Medication Pain Comment: see MAR for pain assessment - scheduled norco recently given PQRS Narrative: Blood Pressure [Right Arm] 123/71 Blood Pressure 156/79 Pain Intensity [Back] 10 Pain Intensity 10 Pain Scale Used Numeric (1 - 10) Scale Used Numeric (1 - 10) Home Medications: Ambulatory Orders Cetirizine HCl [Zyrtec] 10 mg PO DAILY 02/19/25 Dabigatran [Pradaxa] 150 mg PO BID 02/19/25 Furosemide [Lasix] 40 mg PO DAILY 02/19/25 HYDROcodone/APAP 10-325MG [[place] 10-325] 1 tab PO Q2H MDD 8 tabs 02/19/25 Losartan [Cozaar] 25 mg PO DAILY 02/19/25 Meclizine [Antivert] 25 mg PO TID PRN 02/19/25 Potassium Chloride ER [K-Dur 20] 20 meq PO DAILY 05/31/25 Verapamil HCl [Verapamil ER] 180 mg PO BID 02/19/25 allopurinoL 100 mg PO BID 02/19/25 Controlled Substance Measures - Controlled Substance Measures Is patient prescribed a controlled substance at discharge?: No
--- NOTE | 2025-02-22 15:14 | P.PN ---
Subjective Progress Note Date: 02/22/25 Hospital Course: 74 year old M with PMH of A Fib, Gout, HTN, chronic lower back pain presents w ith intractable back pain. Progressively getting worse over the past 4 months after sustaining a fall which resulted in him landing on his tailbone. Pain is 10/10, throbbing in nature with occasional radiation to bilateral lower extremities. Pain worse with movement and alleviated with rest. Takes [place] 10 Q2H at home. He denies any bladder or bowel incontinence, saddle anesthesia. No numbness/weakness/tingling of the extremities. He reports difficulties with his ADL and IADLs at home. In the ED he underwent extensive evaluation. BP 151/98, HR 87, T 98.4F, RR 21, 96% on RA. CBC, Coag panel, CMP significant for WBC 14.4, RBC 4.17, Hct 39.5, PT 14.2, INR 1.3, APTT 39.9, Na 135, bicarb 20, glu 151, Ca 8.2, T. Bili 1.7, alb 2.9. Ankle XR L shows edema. Knee XR L shows edema with questionable cortical step off along the medial tibial plateau. CT L spine shows no high grade spinal canal stenosis. Patient is admitted for intractable pain and Ortho evaluation as well as pain medicine evaluation. Left knee CT was ordered to further evaluate x-ray abnormalities, showed no acute fracture or dislocation, small to moderate-sized suprapatellar joint effusion with hemarthrosis, prepatellar subcutaneous edema and small Fallon's cyst. 02/21: Patient seen and examined at bedside, continues to complain of lower back pain and left knee pain. He requests back surgery. Pain subsides with pain medications but no complete relief. Patient has daily bowel movements. Orthopedic surgery ordered back brace and knee brace per patient request. Pain medicine recommendations pending. Leukocytosis improving, hemoglobin dropped from 13.5-11.2, no signs of bleeding, he sodium 134, creatinine 1.25 02/22: Patient was seen examined at bedside, he complains of ongoing pain, he refused to work with physical therapy, was educated on importance with compliance. Discussed with social work, RN. Patient vitals are stable, hemoglobin stable at 11.4, WBC are slightly up to 12.27, no signs of infection, no fevers, BMP with normal creatinine and electrolytes. Pain medicine following, unable to provide with epidural steroid injection due to recent Pradaxa use on 02/20/2025. Pertinent positives and negatives as discussed above, a complete review of systems was performed and all other systems are negative. Vitals Signs Reviewed. Afebrile, heart rate in 70s, BP 121/62, satting well on room air General: [nontoxic], [no distress], [appears at stated age], obese Derm: [warm], [dry] Head: [atraumatic], [normocephalic], [symmetric] Eyes: [EOMI], [no lid lag], [anicteric sclera] Mouth: [no lip lesion], [mucus membranes moist] Cardiovascular: [S1S2 reg], [no murmur] Lungs: [CTA bilateral], [no rhonchi, no rales] , [no accessory muscle use] Abdominal: [soft], [ nontender to palpation], [no guarding], [no appreciable organomegaly] Ext: [no gross muscle atrophy], [no edema], [no contractures] left knee swollen, decreased ROM, tenderness palpation, lower cloth washer back tender to palpation Neuro: [ CN II-XI grossly intact], [no focal neuro deficits] Psych: [Alert], [oriented], [appropriate affect] Assessment and Plan: Intractable lower back pain History of L3-L5 fusion -No high-grade stenosis on CT - Orthopedic surgery following, ordered back brace per patient's request - Pain medicine consulted, appreciate recommendations - Continue current pain management, home [place] 10 mg every 4 hour scheduled, Dilaudid 0.5 mg every 3 hours as needed for moderate pain and 1 mg every 3 hours as needed for severe pain - PT OT Acute anemia -Globin dropped from 13.5-11.2-1.4, no signs of bleeding, hemoglobin remained stable -Will recheck in the morning Left knee pain Left knee effusion - Orthopedic surgery following, ordered knee brace per patient's request, no other interventions recommended Leukocytosis likely reactive, no signs of infection - Monitor daily CBC, fevers Suprapubic INR likely in the settings of Pradaxa Hyperbilirubinemia, resolved A-fib on Pradaxa -Continue home Pradaxa 150 mg p.o. twice daily, verapamil 180 mg p.o. twice daily Gout: Continue allopurinol 100 mg p.o. twice daily Hypertension: Continue Lasix 40 mg p.o. daily, losartan 25 mg p.o. daily I have reviewed the following clinical program consultant notes: Ortho, pain medicine I have reviewed the results of the following tests: CBC, BMP I have ordered the following tests: CBC timed and AM, BMP I have discussed the care of this patient with the following independent historian: RN, case management I have independently interpreted the following test below: I have discussed the management of this patient with the following physician: DVT ppx: Pradaxa Code status: Full code Anticipated discharge place: TBD Anticipated discharge time: TBD Objective - Vital Signs Vital signs: Vital Signs Temp 98.2 F 02/22/25 13:44 Pulse 69 02/22/25 13:44 Resp 17 02/22/25 13:44 BP 121/74 02/22/25 13:44 Pulse Ox 95 02/22/25 13:44 FiO2 Intake & Output 02/21/25 02/22/25 02/22/25 18:59 06:59 18:59 Intake Total 480 240 Output Total 500 Balance -20 240 Weight 111.13 kg Intake: Oral 480 240 Output: Urine 500 Other: # Voids 2 # Bowel Movements 1 1 - Labs CBC & Chem 7: 02/22/25 05:29 02/22/25 05:29 Labs: Abnormal Lab Results - Last 24 Hours (Table) 02/21/25 02/22/25 02/22/25 Range/Units 20:24 05:29 05:29 WBC 10.98 H 12.27 H (4.50-10.00) 10*3/uL RBC 3.71 L 3.55 L (4.40-5.60) 10*6/uL Hgb 12.0 L 11.4 L (13.0-17.0) g/dL Hct 37.1 L 34.7 L (39.6-50.0) % MCV 100.0 H 97.7 H (80.0-97.0) fL MCH 32.3 H 32.1 H (27.0-32.0) pg RDW 15.3 H 15.2 H (11.5-14.5) % Immature Gran # 0.07 H (0.00-0.04) X 10*3/uL Neutrophils # 9.17 H (1.80-7.70) X 10*3/uL Carbon Dioxide 20.3 L (21.6-31.8) mmol/L BUN/Creatinine Ratio 21.18 H (12.00-20.00) Ratio Glucose 123 H (70-110) mg/dL Calcium 8.0 L (8.7-10.3) mg/dL
[2025-02-23 10:31] LABS: Basophils # (A) 0.02 X 10*3/uL (0.00-0.10); Basophils % (A) 0.2 %; Eosinophils # (A) 0.12 X 10*3/uL (0.04-0.35); Eosinophils % (A) 1.3 %; HCT 34.4 % (39.6-50.0); HGB 11.3 g/dL (13.0-17.0); Lymphocytes # (A) 2.04 X 10*3/uL (0.90-5.00); Lymphocytes % (A) 22.7 %; MCH 32.3 pg (27.0-32.0); MCHC 32.8 g/dL (32.0-37.0); MCV 98.3 FL (80.0-97.0); Mean Platelet Volume 9.6 FL (9.5-12.2); Monocytes # (A) 0.55 X 10*3/uL (0.20-1.00); Monocytes % (A) 6.1 %; NRBC Per 100 WBC 0 X 10*3/uL (0.00-0.01); Neutrophils # (A) 6.21 X 10*3/uL (1.80-7.70); Neutrophils % (A) 69.4 %; Platelet Count 235 X 10*3/uL (140-440); RDW 15.4 % (11.5-14.5); WBC 8.97 X 10*3/uL (4.50-10.00)
[2025-02-23 10:45] LABS: Blood Urea Nitrogen 18.1 mg/dL (9.0-27.0); Calcium 7.8 mg/dL (8.7-10.3); Carbon Dioxide 21.4 mmol/L (21.6-31.8); Chloride 103 mmol/L (96-109); Glucose 107 mg/dL (70-110); Potassium 4.1 mmol/L (3.5-5.5); Sodium 135 mmol/L (135-145)
--- NOTE | 2025-02-23 11:28 | P.PN ---
Subjective Progress Note Date: 02/23/25 Hospital Course: 74 year old M with PMH of A Fib, Gout, HTN, chronic lower back pain presents w ith intractable back pain. Progressively getting worse over the past 4 months after sustaining a fall which resulted in him landing on his tailbone. Pain is 10/10, throbbing in nature with occasional radiation to bilateral lower extremities. Pain worse with movement and alleviated with rest. Takes [place] 10 Q2H at home. He denies any bladder or bowel incontinence, saddle anesthesia. No numbness/weakness/tingling of the extremities. He reports difficulties with his ADL and IADLs at home. In the ED he underwent extensive evaluation. BP 151/98, HR 87, T 98.4F, RR 21, 96% on RA. CBC, Coag panel, CMP significant for WBC 14.4, RBC 4.17, Hct 39.5, PT 14.2, INR 1.3, APTT 39.9, Na 135, bicarb 20, glu 151, Ca 8.2, T. Bili 1.7, alb 2.9. Ankle XR L shows edema. Knee XR L shows edema with questionable cortical step off along the medial tibial plateau. CT L spine shows no high grade spinal canal stenosis. Patient is admitted for intractable pain and Ortho evaluation as well as pain medicine evaluation. Left knee CT was ordered to further evaluate x-ray abnormalities, showed no acute fracture or dislocation, small to moderate-sized suprapatellar joint effusion with hemarthrosis, prepatellar subcutaneous edema and small Fallon's cyst. 02/21: Patient seen and examined at bedside, continues to complain of lower back pain and left knee pain. He requests back surgery. Pain subsides with pain medications but no complete relief. Patient has daily bowel movements. Orthopedic surgery ordered back brace and knee brace per patient request. Pain medicine recommendations pending. Leukocytosis improving, hemoglobin dropped from 13.5-11.2, no signs of bleeding, he sodium 134, creatinine 1.25 02/22: Patient was seen examined at bedside, he complains of ongoing pain, he refused to work with physical therapy, was educated on importance with compliance. Discussed with social work, RN. Patient vitals are stable, hemoglobin stable at 11.4, WBC are slightly up to 12.27, no signs of infection, no fevers, BMP with normal creatinine and electrolytes. Pain medicine following, unable to provide with epidural steroid injection due to recent Pradaxa use on 02/20/2025. 02/23: Seen and examined at bedside, patient states that he wants to be discharged home and do his own physical therapy, he states that there is somebody who can be with him 14/04, cannot provide me with name. 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 Needs assessment of his decision-making capacity, seems to be not understanding his medical condition, capability of take care of himself, does not realize how much support he needs to be able to do his daily activities. Psychiatry consulted. Pertinent positives and negatives as discussed above, a complete review of systems was performed and all other systems are negative. Vitals Signs Reviewed. Afebrile, heart rate in 60s blood pressure normotensive 125/68 General: [nontoxic], [no distress], [appears at stated age], obese Derm: [warm], [dry] Head: [atraumatic], [normocephalic], [symmetric] Eyes: [EOMI], [no lid lag], [anicteric sclera] Mouth: [no lip lesion], [mucus membranes moist] Cardiovascular: [S1S2 reg], [no murmur] Lungs: [CTA bilateral], [no rhonchi, no rales] , [no accessory muscle use] Abdominal: [soft], [ nontender to palpation], [no guarding], [no appreciable organomegaly] Ext: [no gross muscle atrophy], [no edema], [no contractures] left knee swollen, decreased ROM, tenderness palpation, lower double back operator to palpation Neuro: [ CN II-XI grossly intact], [no focal neuro deficits] Psych: [Alert], [oriented], forgetful, easily irritable, swearing at times Assessment and Plan: Intractable lower back pain History of L3-L5 fusion -No high-grade stenosis on CT - Orthopedic surgery following, ordered back brace per patient's request - Pain medicine consulted, appreciate recommendations - Continue current pain management, home [place] 10 mg every 4 hour scheduled, Dilaudid 0.5 mg every 3 hours as needed for moderate pain and 1 mg every 3 hours as needed for severe pain - PT OT Acute anemia -Globin dropped from 13.5-11.2-1.4, no signs of bleeding, hemoglobin remained stable -Will recheck in the morning Possible dementia Concern for lack of decision-making capacity -Psychiatry consulted Left knee pain Left knee effusion - Orthopedic surgery following, ordered knee brace per patient's request, no other interventions recommended Leukocytosis likely reactive, no signs of infection, resolved - Monitor fevers Suprapubic INR likely in the settings of Pradaxa Hyperbilirubinemia, resolved A-fib on Pradaxa -Continue home Pradaxa 150 mg p.o. twice daily, verapamil 180 mg p.o. twice daily Gout: Continue allopurinol 100 mg p.o. twice daily Hypertension: Continue Lasix 40 mg p.o. daily, losartan 25 mg p.o. daily I have reviewed the following regional engagement consultant notes: Ortho, pain medicine I have reviewed the results of the following tests: CBC, BMP I have ordered the following tests: I have discussed the care of this patient with the following independent historian: RN, will place psychiatry consult I have independently interpreted the following test below: I have discussed the management of this patient with the following physician: DVT ppx: Pradaxa Code status: Full code Anticipated discharge place: TBD Anticipated discharge time: TBD Objective - Vital Signs Vital signs: Vital Signs Temp 98.0 F 02/23/25 06:56 Pulse 65 02/23/25 06:56 Resp 16 02/23/25 06:56 BP 138/74 02/23/25 06:56 Pulse Ox 95 02/23/25 06:56 FiO2 Intake & Output 02/22/25 02/23/25 02/23/25 18:59 06:59 18:59 Intake Total 720 540 Output Total 800 400 Balance -80 540 -400 Intake: Oral 720 540 Output: Urine 800 400 Other: Voiding Method Urinal # Voids 1 - Labs CBC & Chem 7: 02/23/25 06:02 02/23/25 06:02 Labs: Abnormal Lab Results - Last 24 Hours (Table) 02/23/25 02/23/25 Range/Units 06:02 06:02 RBC 3.50 L (4.40-5.60) X 10*6/uL Hgb 11.3 L (13.0-17.0) g/dL Hct 34.4 L (39.6-50.0) % MCV 98.3 H (80.0-97.0) FL MCH 32.3 H (27.0-32.0) pg RDW 15.4 H (11.5-14.5) % Carbon Dioxide 21.4 L (21.6-31.8) mmol/L Calcium 7.8 L (8.7-10.3) mg/dL
--- NOTE | 2025-02-23 15:55 | P.CN ---
Psychiatric Consult - . Consult date: 02/23/25 Consult:: 02/23/25 14:59 IDENTIFYING DATA: This patient is a 74-year-old male, living independently REASON FOR REFERRAL: Psychiatry was consulted for assess for decision-making capacity HISTORY OF PRESENT ILLNESS: The patient presented to the hospital with low back pain. Patient's pain is so severe that he was unable to ambulate. He was started on IV Dilaudid. PT/OT is recommending SUNG for patient however he is requesting to be discharged home. Patient denied any past psychiatric history. He was ANO x 2 not date or month. Staff did note patient to be intermittently confused. He states that he is independent with his ADLs he takes all of his medications as prescribed. He states his only medical diagnosis is back pain and that he is currently prescribed [place], Zyrtec, verapamil and Lasix. Patient states he is agreeable with rehab as long as it is at his house, stating that he does not want to go to a facility for rehabilitation. This was discussed further to which patient was unable to elicit any potential benefits versus risks of going or not going to inpatient rehab. Patient was fixated on returning home with rehab at his house. Upon probing patient was able to state the potential of hitting his head at home but did not address his weakness with fall risk with declining SUNG or in the ability to get stronger going. Patient did not wish to share a name for DPOA. At this time patient denies any suicidal or homicidal ideations, intent or plan. Patient denies any auditory, visual hallucinations and denies any paranoia or delusions. Patients admits to using nicotine. PAST PSYCHIATRIC HISTORY: Patient has no past psych history. Patient denies being on any psychiatric medications. Patient denies any previous psychiatric hospitalizations. Patient denies any psychiatric outpatient follow-up. Patient denies any history of suicide attempts in the past. PAST MEDICAL HISTORY: Hypertension, chronic back pain, cerebral palsy, heart failure. ALLERGIES: as per EMR. CHEMICAL DEPENDENCY HISTORY: as per HPI. FAMILY PSYCHIATRIC/SUBSTANCE USE HISTORY: Denies SOCIAL HISTORY: Patient is single and has no children. He completed high school and is retired and also on disability. He lives independently. MENTAL STATUS EXAM: General Appearance: Patient appears to be stated age is alert, pleasant, and cooperative. Patient appears to have fair hygiene and grooming wearing hospital gown with fair eye contact. Behavior: Patient is calmly lying in bed without any agitated behavior. Speech: Patient's speech is fluent and nonpressured. Mood/Affect: Patient reports their mood is "okay", affect is congruent Suicidality/Homicidality: Patient denies having any suicidal or homicidal ideation intent or plan. Perceptions: Patient denies any visual hallucinations and denies any auditory hallucinations Though content/process: There is no evidence of any delusional thought content and thought process is linear and goal-directed. Memory and concentration: AOX2 not month/date Judgment and insight: Poor IMPRESSIONS: Unspecified neurocognitive disorder PLAN: -At this time patient DOES NOT meet criteria for inpatient psychiatric admission. -Patient DOES NOT have decision making capacity at this time and is unable to reason through and communicate/appreciate the risks, benefits and alternatives to treatment. Recommend patient to obtain DPOA however he would not list the name for me at this time -Would recommend the following medication changes/additions: n/a -Communicated plan to patient's nurse -Psychiatry will sign off at this time -Please contact with any questions.
[2025-02-23] MEDS: HYDROmorphone 0.5 MG/0.5 ML SYRINGE IVP PRN (21:48)
[2025-02-24] MEDS: HYDROmorphone 1 MG/ML 1 ML SYRINGE IVP PRN (08:50)
[2025-02-24 08:56] LABS: Basophils # (A) 0.02 X 10*3/uL (0.00-0.10); Basophils % (A) 0.2 %; Eosinophils # (A) 0.13 X 10*3/uL (0.04-0.35); Eosinophils % (A) 1.5 %; HCT 34.2 % (39.6-50.0); HGB 11.1 g/dL (13.0-17.0); Lymphocytes # (A) 1.99 X 10*3/uL (0.90-5.00); Lymphocytes % (A) 23.7 %; MCH 31.9 pg (27.0-32.0); MCHC 32.5 g/dL (32.0-37.0); MCV 98.3 FL (80.0-97.0); Mean Platelet Volume 9.6 FL (9.5-12.2); Monocytes # (A) 0.52 X 10*3/uL (0.20-1.00); Monocytes % (A) 6.2 %; NRBC Per 100 WBC 0 X 10*3/uL (0.00-0.01); Neutrophils # (A) 5.68 X 10*3/uL (1.80-7.70); Neutrophils % (A) 67.8 %; Platelet Count 263 X 10*3/uL (140-440); RBC 3.48 X 10*6/uL (4.40-5.60); RDW 15.1 % (11.5-14.5); WBC 8.39 X 10*3/uL (4.50-10.00)
[2025-02-24 08:59] LABS: BUN/Creat Ratio 16.67 Ratio (12.00-20.00); Calcium 7.8 mg/dL (8.7-10.3); Carbon Dioxide 21.4 mmol/L (21.6-31.8); Chloride 103 mmol/L (96-109); Glucose 94 mg/dL (70-110); Sodium 134 mmol/L (135-145)
--- NOTE | 2025-02-24 14:25 | P.PN ---
Subjective Progress Note Date: 02/24/25 Hospital Course: 74 year old M with PMH of A Fib, Gout, HTN, chronic lower back pain presents with intractable back pain. Progressively getting worse over the past 4 months after sustaining a fall which resulted in him landing on his tailbone. Pain is 10/10, throbbing in nature with occasional radiation to bilateral lower extremities. Pain worse with movement and alleviated with rest. Takes [place] 10 Q2H at home. He denies any bladder or bowel incontinence, saddle anesthesia. No numbness/weakness/tingling of the extremities. He reports difficulties with his ADL and IADLs at home. In the ED he underwent extensive evaluation. BP 151/98, HR 87, T 98.4F, RR 21, 96% on RA. CBC, Coag panel, CMP significant for WBC 14.4, RBC 4.17, Hct 39.5, PT 14.2, INR 1.3, APTT 39.9, Na 135, bicarb 20, glu 151, Ca 8.2, T. Bili 1.7, alb 2.9. Ankle XR L shows edema. Knee XR L shows edema with questionable cortical step off along the medial tibial plateau. CT L spine shows no high grade spinal canal stenosis. Patient is admitted for intractable pain and Ortho evaluation as well as pain medicine evaluation. Left knee CT was ordered to further evaluate x-ray abnormalities, showed no acute fracture or dislocation, small to moderate-sized suprapatellar joint effusion with hemarthrosis, prepatellar subcutaneous edema and small Fallon's cyst. 02/21: Patient seen and examined at bedside, continues to complain of lower back pain and left knee pain. He requests back surgery. Pain subsides with pain medications but no complete relief. Patient has daily bowel movements. Orthopedic surgery ordered back brace and knee brace per patient request. Pain medicine recommendations pending. Leukocytosis improving, hemoglobin dropped from 13.5-11.2, no signs of bleeding, he sodium 134, creatinine 1.25 02/22: Patient was seen examined at bedside, he complains of ongoing pain, he refused to work with physical therapy, was educated on importance with compliance. Discussed with social work, RN. Patient vitals are stable, hemoglobin stable at 11.4, WBC are slightly up to 12.27, no signs of infection, no fevers, BMP with normal creatinine and electrolytes. Pain medicine following, unable to provide with epidural steroid injection due to recent Pradaxa use on 02/20/2025. 02/23: Seen and examined at bedside, patient states that he wants to be discharged home and do his own physical therapy, he states that there is somebody who can be with him 14/04, cannot provide me with name. 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 Needs assessment of his decision-making capacity, seems to be not understanding his medical condition, capability of take care of himself, does not realize how much support he needs to be able to do his daily activities. Psychiatry consulted. Patient does not have decision-making capacity per psychiatry 02/24: Seen examined at bedside, pain is persistent, no other new complaints. Patient's friend states that he has DPOA documents and will bring to the hospital, plan for possible steroid injection with pain medicine tomorrow and hopefully discharge within the next 24 to 48 hours should the pain level improved and patient be able to transition to oral pain medications only.: Revealed normal WBC count and stable hemoglobin, normal creatinine, stable sodium 134 Pertinent positives and negatives as discussed above, a complete review of systems was performed and all other systems are negative. Vitals Signs Reviewed. Febrile, heart rate in 60s, blood pressure 126/65, satting well on room air General: [nontoxic], [no distress], [appears at stated age], obese Derm: [warm], [dry] Head: [atraumatic], [normocephalic], [symmetric] Eyes: [EOMI], [no lid lag], [anicteric sclera] Mouth: [no lip lesion], [mucus membranes moist] Cardiovascular: [S1S2 reg], [no murmur] Lungs: [CTA bilateral], [no rhonchi, no rales] , [no accessory muscle use] Abdominal: [soft], [ nontender to palpation], [no guarding], [no appreciable organomegaly] Ext: [no gross muscle atrophy], [no edema], [no contractures] left knee swollen, decreased ROM, tenderness palpation, lower backing in machine tender to palpation Neuro: [ CN II-XI grossly intact], [no focal neuro deficits] Psych: [Alert], [oriented], forgetful, easily irritable, swearing at times Assessment and Plan: Intractable lower back pain History of L3-L5 fusion -No high-grade stenosis on CT - Orthopedic surgery following, ordered back brace per patient's request - Pain medicine consulted, appreciate recommendations, possible steroid injection 02/25 - Continue current pain management, home [place] 10 mg every 4 hour scheduled, changed to Dilaudid 0.5 every 6 hours as needed for moderate pain and 1 mg every 4 hours for severe pain - PT OT Acute anemia -Globin dropped from 13.5-11.2-, no signs of bleeding, hemoglobin remained stable Possible dementia lack of decision-making capacity -Psychiatry consulted, patient does not have decisional capacity, patient's friend states that he has power of admitted attorneys, will bring documents, extensively discussed with social work discharge planning Left knee pain Left knee effusion - Orthopedic surgery following, ordered knee brace per patient's request, no o ther interventions recommended Leukocytosis likely reactive, no signs of infection, resolved - Monitor fevers Suprapubic INR likely in the settings of Pradaxa Hyperbilirubinemia, resolved A-fib on Pradaxa - Hold home Pradaxa 150 mg p.o. twice daily for possible steroid injection, verapamil 180 mg p.o. twice daily Gout: Continue allopurinol 100 mg p.o. twice daily Hypertension: Continue Lasix 40 mg p.o. daily, losartan 25 mg p.o. daily I have reviewed the following residential property consultant notes: Podiatry I have reviewed the results of the following tests: CBC, BMP I have ordered the following tests: I have discussed the care of this patient with the following independent historian: RN, will place psychiatry consult I have independently interpreted the following test below: I have discussed the management of this patient with the following physician: DVT ppx: Pradaxa Code status: Full code Anticipated discharge place: [facility] Anticipated discharge time: TBD Objective - Vital Signs Vital signs: Vital Signs Temp 98.3 F 02/24/25 11:24 Pulse 65 02/24/25 11:24 Resp 16 02/24/25 11:24 BP 126/65 02/24/25 11:24 Pulse Ox 94 L 02/24/25 11:24 FiO2 Intake & Output 02/23/25 02/24/25 02/24/25 18:59 06:59 18:59 Intake Total 2165 240 Output Total 400 700 Balance 1765 -700 240 Intake: Oral 2165 240 Output: Urine 400 700 Other: Voiding Method Urinal Urinal Diaper Diaper # Voids 2 5 # Bowel Movements 1 - Labs CBC & Chem 7: 02/24/25 04:56 02/24/25 04:56 Labs: Abnormal Lab Results - Last 24 Hours (Table) 02/24/25 02/24/25 Range/Units 04:56 04:56 RBC 3.48 L (4.40-5.60) X 10*6/uL Hgb 11.1 L (13.0-17.0) g/dL Hct 34.2 L (39.6-50.0) % MCV 98.3 H (80.0-97.0) FL RDW 15.1 H (11.5-14.5) % Immature Gran # 0.05 H (0.00-0.04) X 10*3/uL Sodium 134 L (135-145) mmol/L Carbon Dioxide 21.4 L (21.6-31.8) mmol/L Calcium 7.8 L (8.7-10.3) mg/dL
[2025-02-25] MEDS ORDERED: DEXAMETHASONE SOD PHOSPHATE 10 MG/ML 1 ML VIAL ONE (09:19)
[2025-02-25] MEDS ORDERED: IOPAMIDOL M200 10 ML VIAL ONE (09:19)
--- NOTE | 2025-02-25 09:48 | P.PCN ---
Date of Procedure: 02/25/25 Description of Procedure: PREOPERATIVE DIAGNOSIS: Lumbar post laminectomy syndrome. POSTOPERATIVE DIAGNOSIS: Lumbar post laminectomy syndrome. PROCEDURE: 1. Caudal epidural steroid injection under fluoroscopic guidance. 2. Caudal epidurogram ANESTHESIA: Local with 1% lidocaine EBL: None. PROCEDURE INDICATION: The patient with neuropathic pain radiating distally returns for caudal epidural steroid injection. patient has a history of previous posterior lumbar laminectomy with fusion from L3 to S1 as presented to the hospital after a fall and complaining of severe low back pain radiating to the bilateral ankles. patient is never had any previous steroid injections. Current symptoms are severe low back pain radicular pain, down to the bilateral ankles. Patient is having significant difficulty with movement of his lower extremities secondary to pain. PROCEDURE DESCRIPTION: The patient was seen and identified in the preoperative area. Risks, benefits, complications, and alternatives were discussed with the patient. The patient agreed to proceed with the procedure and signed the consent. IV was started, and vital signs were stable. Patient was taken to the OR and time out was completed. The patient was placed in the prone position on procedure table and a pillow was placed under the abdomen to reduce lumbar lordosis. The lumbosacral area was prepped and draped in the usual sterile fashion. Critical pause was taken. Vital signs were closely monitored during the procedure. Using lateral fluoroscopy the anterior-posterior plates of the sacrum were identified and the skin and deeper tissues corresponding into sacrococcygeal ligament were anesthetized using approximately 3 mL of 1% lidocaine. Then under fluoroscopy, a 3-1/2-inch 20-gauge Tuohy epidural needle was guided through the sacrococcygeal ligament, and into the epidural space. After negative aspiration, a 2 mL of omnipaque-180 contrast dye was injected with epidurogram noted in the lateral and AP views. Again after negative aspiration for CSF, blood, and with no paresthesias, dexamethasone 10mg, 4ml of 1% preservative free Lidocaine was injected with washout of epidurogram. Needle was withdrawn intact. Skin was cleansed, and bandage was applied. COMPLICATIONS: None DISPOSITION / PLANS: The patient was placed in a supine position and transferred to the recovery area in a stable condition for observation and was discharged from the recovery room after meeting discharge criteria. Home discharge instructions given to the patient by the staff. The patient was reexamined prior to discharge. Patient had VAS of 10/10 prior to procedure, Prior to discharge to room, VAS 4/10 with significantly better ROM and leg movement, patient has markedly noted improvement in pain control 2/2 lidocaine. Patient will f/u in clinic 2 weeks from now, appt made, and will schedule in 4 weeks for caudal epidural with lysis of adhesions. Patient on pradaxa and will need to hold for 4 days prior to f/u procedure.
--- NOTE | 2025-02-25 15:16 | P.PN ---
Subjective Progress Note Date: 02/25/25 Hospital Course: 74 year old M with PMH of A Fib, Gout, HTN, chronic lower back pain presents w ith intractable back pain. Progressively getting worse over the past 4 months after sustaining a fall which resulted in him landing on his tailbone. Pain is 10/10, throbbing in nature with occasional radiation to bilateral lower extremities. Pain worse with movement and alleviated with rest. Takes [place] 10 Q2H at home. He denies any bladder or bowel incontinence, saddle anesthesia. No numbness/weakness/tingling of the extremities. He reports difficulties with his ADL and IADLs at home. In the ED he underwent extensive evaluation. BP 151/98, HR 87, T 98.4F, RR 21, 96% on RA. CBC, Coag panel, CMP significant for WBC 14.4, RBC 4.17, Hct 39.5, PT 14.2, INR 1.3, APTT 39.9, Na 135, bicarb 20, glu 151, Ca 8.2, T. Bili 1.7, alb 2.9. Ankle XR L shows edema. Knee XR L shows edema with questionable cortical step off along the medial tibial plateau. CT L spine shows no high grade spinal canal stenosis. Patient is admitted for intractable pain and Ortho evaluation as well as pain medicine evaluation. Left knee CT was ordered to further evaluate x-ray abnormalities, showed no acute fracture or dislocation, small to moderate-sized suprapatellar joint effusion with hemarthrosis, prepatellar subcutaneous edema and small Fallon's cyst. 02/21: Patient seen and examined at bedside, continues to complain of lower back pain and left knee pain. He requests back surgery. Pain subsides with pain medications but no complete relief. Patient has daily bowel movements. Orthopedic surgery ordered back brace and knee brace per patient request. Pain medicine recommendations pending. Leukocytosis improving, hemoglobin dropped from 13.5-11.2, no signs of bleeding, he sodium 134, creatinine 1.25 02/22: Patient was seen examined at bedside, he complains of ongoing pain, he refused to work with physical therapy, was educated on importance with compliance. Discussed with social work, RN. Patient vitals are stable, hemoglobin stable at 11.4, WBC are slightly up to 12.27, no signs of infection, no fevers, BMP with normal creatinine and electrolytes. Pain medicine following, unable to provide with epidural steroid injection due to recent Pradaxa use on 02/20/2025. Psychiatry consulted. Patient does not have decision-making capacity per psychiatry 02/25: Patient was seen examined bedside, no acute events overnight, continues to complain of lower back pain, s/p caudal epidural steroid injection. Plan to go to [facility], pending placement. Patient is stable will de-escalate IV pain medications. No new blood work. Discussed with case management and patient is ready for discharge. Pertinent positives and negatives as discussed above, a complete review of systems was performed and all other systems are negative. Vitals Signs Reviewed. Febrile, heart rate in 60s, blood pressure 126/65, satting well on room air General: [nontoxic], [no distress], [appears at stated age], obese Derm: [warm], [dry] Head: [atraumatic], [normocephalic], [symmetric] Eyes: [EOMI], [no lid lag], [anicteric sclera] Mouth: [no lip lesion], [mucus membranes moist] Cardiovascular: [S1S2 reg], [no murmur] Lungs: [CTA bilateral], [no rhonchi, no rales] , [no accessory muscle use] Abdominal: [soft], [ nontender to palpation], [no guarding], [no appreciable organomegaly] Ext: [no gross muscle atrophy], [no edema], [no contractures] left knee swollen, decreased ROM, tenderness palpation, lower paper machine back tender to palpation Neuro: [ CN II-XI grossly intact], [no focal neuro deficits] Psych: [Alert], [oriented], forgetful, easily irritable, swearing at times Assessment and Plan: Intractable lower back pain History of L3-L5 fusion -No high-grade stenosis on CT - Orthopedic surgery following, ordered back brace per patient's request - Pain medicine consulted, s/p caudal epidural steroid injection - Continue current pain management, home [place] 10 mg every 4 hour scheduled, changed to Dilaudid 0.5 every 6 hours as needed discontinue Dilaudid 1 mg every 4 hours for severe pain. - PT OT recommends [facility] Acute anemia, likely hemodilution, stabilized hemoglobin 11.1, no signs of bleeding Possible dementia lack of decision-making capacity -Psychiatry consulted, patient does not have decisional capacity, patient's f riend states that he has power of supervisor, will bring documents, extensively discussed with social work discharge planning Left knee pain Left knee effusion - Orthopedic surgery following, ordered knee brace per patient's request, no other interventions recommended Leukocytosis likely reactive, no signs of infection, resolved - Monitor fevers Suprapubic INR likely in the settings of Pradaxa Hyperbilirubinemia, resolved A-fib on Pradaxa - Hold home Pradaxa 150 mg p.o. twice daily for possible steroid injection, verapamil 180 mg p.o. twice daily Gout: Continue allopurinol 100 mg p.o. twice daily Hypertension: Continue Lasix 40 mg p.o. daily, losartan 25 mg p.o. daily DVT ppx: Pradaxa Code status: Full code Anticipated discharge place: [facility] Anticipated discharge time: Pending pending placement Objective - Vital Signs Vital signs: Vital Signs Temp 97.3 F L 02/25/25 11:36 Pulse 65 02/25/25 11:36 Resp 16 02/25/25 11:36 BP 122/70 02/25/25 11:36 Pulse Ox 97 02/25/25 11:36 FiO2 Intake & Output 02/24/25 02/25/25 02/25/25 18:59 06:59 18:59 Intake Total 2220 222 480 Output Total 525 Balance 2220 -303 480 Intake: Oral 2220 222 480 Output: Urine 525 Other: Voiding Method Urinal Urinal Urinal Diaper Diaper Diaper # Voids 5 - Labs CBC & Chem 7: 02/24/25 04:56 02/24/25 04:56
[2025-02-25] MEDS: HYDROmorphone 0.5 MG/0.5 ML SYRINGE IVP PRN (20:58)
--- NOTE | 2025-02-25 23:20 | FL ---
Fluoroscopy INDICATION: Pain FINDINGS: Fluoroscopy time: 32 seconds. Total dose area product (DAP) in uGy*m?, mGy*cm? (or similar): 0.84927 Images obtained: 2. Images document needle directed towards the inferior sacral canal IMPRESSION: 1. Documentation of fluoroscopy. [facility], , 02/25/2025 11:17 PM
--- NOTE | 2025-02-26 09:03 | P.PN ---
Subjective Progress Note Date: 02/26/25 Hospital Course: 74 year old M with PMH of A Fib, Gout, HTN, chronic lower back pain presents w ith intractable back pain. Progressively getting worse over the past 4 months after sustaining a fall which resulted in him landing on his tailbone. Pain is 10/10, throbbing in nature with occasional radiation to bilateral lower extremities. Pain worse with movement and alleviated with rest. Takes [place] 10 Q2H at home. He denies any bladder or bowel incontinence, saddle anesthesia. No numbness/weakness/tingling of the extremities. He reports difficulties with his ADL and IADLs at home. In the ED he underwent extensive evaluation. BP 151/98, HR 87, T 98.4F, RR 21, 96% on RA. CBC, Coag panel, CMP significant for WBC 14.4, RBC 4.17, Hct 39.5, PT 14.2, INR 1.3, APTT 39.9, Na 135, bicarb 20, glu 151, Ca 8.2, T. Bili 1.7, alb 2.9. Ankle XR L shows edema. Knee XR L shows edema with questionable cortical step off along the medial tibial plateau. CT L spine shows no high grade spinal canal stenosis. Patient is admitted for intractable pain and Ortho evaluation as well as pain medicine evaluation. Left knee CT was ordered to further evaluate x-ray abnormalities, showed no acute fracture or dislocation, small to moderate-sized suprapatellar joint effusion with hemarthrosis, prepatellar subcutaneous edema and small Fallon's cyst. 02/21: Patient seen and examined at bedside, continues to complain of lower back pain and left knee pain. He requests back surgery. Pain subsides with pain medications but no complete relief. Patient has daily bowel movements. Orthopedic surgery ordered back brace and knee brace per patient request. Pain medicine recommendations pending. Leukocytosis improving, hemoglobin dropped from 13.5-11.2, no signs of bleeding, he sodium 134, creatinine 1.25 02/22: Patient was seen examined at bedside, he complains of ongoing pain, he refused to work with physical therapy, was educated on importance with compliance. Discussed with social work, RN. Patient vitals are stable, hemoglobin stable at 11.4, WBC are slightly up to 12.27, no signs of infection, no fevers, BMP with normal creatinine and electrolytes. Pain medicine following, unable to provide with epidural steroid injection due to recent Pradaxa use on 02/20/2025. Psychiatry consulted. Patient does not have decision-making capacity per psychiatry Had epidural steroid injection on 02/25, de-escalating IV Dilaudid. Stable for discharge, pending placement 02/26: Seen and examined at bedside, no events overnight, patient states pain is somewhat better. No new blood work obtained. Patient is afebrile, satting well on room air, blood pressure controlled Pertinent positives and negatives as discussed above, a complete review of systems was performed and all other systems are negative. Vitals Signs Reviewed. Febrile, heart rate in 60s, blood pressure 126/65, satting well on room air General: [nontoxic], [no distress], [appears at stated age], obese Derm: [warm], [dry] Head: [atraumatic], [normocephalic], [symmetric] Eyes: [EOMI], [no lid lag], [anicteric sclera] Mouth: [no lip lesion], [mucus membranes moist] Cardiovascular: [S1S2 reg], [no murmur] Lungs: [CTA bilateral], [no rhonchi, no rales] , [no accessory muscle use] Abdominal: [soft], [ nontender to palpation], [no guarding], [no appreciable organomegaly] Ext: [no gross muscle atrophy], [no edema], [no contractures] left knee swollen, decreased ROM, tenderness palpation, lower rubber tubing backer to palpation Neuro: [ CN II-XI grossly intact], [no focal neuro deficits] Psych: [Alert], [oriented], forgetful, easily irritable, swearing at times Assessment and Plan: Intractable lower back pain History of L3-L5 fusion -No high-grade stenosis on CT - Orthopedic surgery following, ordered back brace per patient's request - Pain medicine consulted, s/p caudal epidural steroid injection - Continue current pain management, home [place] 10 mg every 4 hour scheduled, changed to Dilaudid 0.5 every 6 hours as needed discontinue Dilaudid 1 mg every 4 hours for severe pain. - PT OT recommends [facility] Acute anemia, likely hemodilution, stabilized hemoglobin 11.1, no signs of bleeding Possible dementia lack of decision-making capacity -Psychiatry consulted, patient does not have decisional capacity, patient's friend states that he has power of traffic law attorney, will bring documents, extensively discussed with social work discharge planning Left knee pain Left knee effusion - Orthopedic surgery following, ordered knee brace per patient's request, no other interventions recommended Leukocytosis likely reactive, no signs of infection, resolved - Monitor fevers Suprapubic INR likely in the settings of Pradaxa Hyperbilirubinemia, resolved A-fib on Pradaxa - Hold home Pradaxa 150 mg p.o. twice daily for possible steroid injection, verapamil 180 mg p.o. twice daily Gout: Continue allopurinol 100 mg p.o. twice daily Hypertension: Continue Lasix 40 mg p.o. daily, losartan 25 mg p.o. daily DVT ppx: Pradaxa Code status: Full code Anticipated discharge place: [facility] Anticipated discharge time: Pending pending placement Objective - Vital Signs Vital signs: Vital Signs Temp 97.6 F 02/26/25 07:32 Pulse 64 02/26/25 07:32 Resp 16 02/26/25 07:32 BP 145/71 02/26/25 07:32 Pulse Ox 97 02/26/25 07:32 FiO2 Intake & Output 02/25/25 02/26/25 02/26/25 18:59 06:59 18:59 Intake Total 1979 Balance 1979 Intake: Oral 1979 Other: Voiding Method Urinal Urinal Diaper Diaper # Voids 6 2 # Bowel Movements 1 - Labs CBC & Chem 7: 02/24/25 04:56 02/24/25 04:56
--- NOTE | 2025-02-27 12:21 | P.PN ---
Subjective Progress Note Date: 02/27/25 Hospital Course: 74 year old M with PMH of A Fib, Gout, HTN, chronic lower back pain presents w ith intractable back pain. Progressively getting worse over the past 4 months after sustaining a fall which resulted in him landing on his tailbone. Pain is 10/10, throbbing in nature with occasional radiation to bilateral lower extremities. Pain worse with movement and alleviated with rest. Takes [place] 10 Q2H at home. He denies any bladder or bowel incontinence, saddle anesthesia. No numbness/weakness/tingling of the extremities. He reports difficulties with his ADL and IADLs at home. In the ED he underwent extensive evaluation. BP 151/98, HR 87, T 98.4F, RR 21, 96% on RA. CBC, Coag panel, CMP significant for WBC 14.4, RBC 4.17, Hct 39.5, PT 14.2, INR 1.3, APTT 39.9, Na 135, bicarb 20, glu 151, Ca 8.2, T. Bili 1.7, alb 2.9. Ankle XR L shows edema. Knee XR L shows edema with questionable cortical step off along the medial tibial plateau. CT L spine shows no high grade spinal canal stenosis. Patient is admitted for intractable pain and Ortho evaluation as well as pain medicine evaluation. Left knee CT was ordered to further evaluate x-ray abnormalities, showed no acute fracture or dislocation, small to moderate-sized suprapatellar joint effusion with hemarthrosis, prepatellar subcutaneous edema and small Fallon's cyst.Orthopedic surgery ordered back brace and knee brace per patient request. Psychiatry consulted. Patient does not have decision-making capacity per psychiatry Had epidural steroid injection on 02/25, de-escalating IV Dilaudid. Stable for discharge, pending placement 02/27: Seen and examined at bedside, no events overnight, patient states pain is somewhat better. No new blood work obtained. Patient is afebrile, satting well on room air, blood pressure controlled. He says that he needs to quickly go home to take care of " 1 thing", informed him that he cannot live AMA and the plan is to be discharged to subacute rehab once insurance authorization is completed, he seems to be understanding that plan Pertinent positives and negatives as discussed above, a complete review of systems was performed and all other systems are negative. Vitals Signs Reviewed. Febrile, heart rate in 60s, blood pressure 126/65, satting well on room air General: [nontoxic], [no distress], [appears at stated age], obese Derm: [warm], [dry] Head: [atraumatic], [normocephalic], [symmetric] Eyes: [EOMI], [no lid lag], [anicteric sclera] Mouth: [no lip lesion], [mucus membranes moist] Cardiovascular: [S1S2 reg], [no murmur] Lungs: [CTA bilateral], [no rhonchi, no rales] , [no accessory muscle use] Abdominal: [soft], [ nontender to palpation], [no guarding], [no appreciable organomegaly] Ext: [no gross muscle atrophy], [no edema], [no contractures] left knee swollen, decreased ROM, tenderness palpation, lower back joiner to palpation Neuro: [ CN II-XI grossly intact], [no focal neuro deficits] Psych: [Alert], [oriented], forgetful, easily irritable, swearing at times Assessment and Plan: Intractable lower back pain History of L3-L5 fusion -No high-grade stenosis on CT - Orthopedic surgery following, ordered back brace per patient's request - Pain medicine consulted, s/p caudal epidural steroid injection - Continue current pain management, home [place] 10 mg every 4 hour scheduled, changed to Dilaudid 0.5 every 6 hours as needed discontinue Dilaudid 1 mg every 4 hours for severe pain. - PT OT recommends [facility] Acute anemia, likely hemodilution, stabilized hemoglobin 11.1, no signs of bleeding Possible dementia lack of decision-making capacity -Psychiatry consulted, patient does not have decisional capacity, patient's friend states that he has power of employment attorney, will bring documents, extensively discussed with social work discharge planning Left knee pain Left knee effusion - Orthopedic surgery following, ordered knee brace per patient's request, no ot her interventions recommended Leukocytosis likely reactive, no signs of infection, resolved - Monitor fevers Suprapubic INR likely in the settings of Pradaxa Hyperbilirubinemia, resolved A-fib on Pradaxa - continue home Pradaxa 150 mg p.o. twice daily for possible steroid injection, verapamil 180 mg p.o. twice daily Gout: Continue allopurinol 100 mg p.o. twice daily Hypertension: Continue Lasix 40 mg p.o. daily, losartan 25 mg p.o. daily DVT ppx: Pradaxa Code status: Full code Anticipated discharge place: [facility] Anticipated discharge time: Pending pending placement Objective - Vital Signs Vital signs: Vital Signs Temp 97.4 F L 02/27/25 07:50 Pulse 63 02/27/25 07:50 Resp 17 02/27/25 07:50 BP 151/83 02/27/25 07:50 Pulse Ox 96 02/27/25 07:50 FiO2 Intake & Output 02/26/25 02/27/25 02/27/25 18:59 06:59 18:59 Intake Total 960 540 Output Total 750 Balance 210 540 Intake: Oral 960 540 Output: Urine 750 Other: Voiding Method Urinal Urinal Urinal Diaper Diaper Diaper # Voids 3 - Labs CBC & Chem 7: 02/24/25 04:56 02/24/25 04:56
--- NOTE | 2025-02-28 14:04 | P.PN ---
Subjective Progress Note Date: 02/28/25 74 year old M with PMH of A Fib, Gout, HTN, chronic lower back pain presents with intractable back pain. Progressively getting worse over the past 4 months after sustaining a fall which resulted in him landing on his tailbone. Pain is 10/10, throbbing in nature with occasional radiation to bilateral lower extremities. Pain worse with movement and alleviated with rest. Takes [place] 10 Q2H at home. He denies any bladder or bowel incontinence, saddle anesthesia. No numbness/weakness/tingling of the extremities. He reports difficulties with his ADL and IADLs at home. In the ED he underwent extensive evaluation. BP 151/98, HR 87, T 98.4F, RR 21, 96% on RA. CBC, Coag panel, CMP significant for WBC 14.4, RBC 4.17, Hct 39.5, PT 14.2, INR 1.3, APTT 39.9, Na 135, bicarb 20, glu 151, Ca 8.2, T. Bili 1.7, alb 2.9. Ankle XR L shows edema. Knee XR L shows edema with questionable cortical step off along the medial tibial plateau. CT L spine shows no high grade spinal canal stenosis. Patient is admitted for intractable pain and Ortho evaluation. Ortho recommended L knee CT which showed no acute fracture or dislocation, small to moderate-sized suprapatellar joint effusion with hemarthrosis, prepatellar subcutaneous edema and small Fallon's cyst. Patient was fitted for knee and back brace per patient request. Pain management was able to do an epidural steroid injection. Psychiatry also consulted, patient does not have decision making capacity, he does have a DPOA on file. 02/28 Patient was seen and examined. Motivated to work with PT and OT able to stand up and pivot into a chair today. Patient is cleared for discharge and medically stable pending insurance authorization for SNF. BP 131/77, HR 62, RR 17, T 97.5F, 95% on RA. General: mild distress, appears at stated age Derm: warm, dry Head: atraumatic, normocephalic, symmetric Mouth: no lip lesion, mucus membranes moist Cardiovascular: S1 S2 irreg. No murmur. Lungs: Decreased BS bilaterally, no accessory muscle use Ext: no gross muscle atrophy, no edema, no contractures Neuro: No focal neurologic deficits. Psych: Alert and oriented. Based on my assessment of this patient, this patient meets a high complexity level of care. Intractable lower back pain with history of L3-5 fusion: Status post epidural steroid injection. Dilaudid 0.5 mg IV Q6H PRN pain, [place] 10 Q4H PRN pain. Fall precautions. PT and OT on board. Ortho and Pain management have signed off. Dementia: Psyc evaluated, patient does not have decision making capacity. Scar isabel cannot leave AMA. L knee pain: CT L knee as above. Orthopedic Sx recommends no further interve ntion. Supratherapeutic INR: Likely due to Pradaxa. A Fib: Pradaxa 150 mg PO BID. Verapamil 180 mg PO BID. Gout: Allopurinol 100 mg PO BID. HTN: Lasix 40 mg PO QD. Losartan 25 mg PO QD. Resolved: Leukocytosis, Hyperbilirubinemia CODE STATUS: FULL CODE DVT Prophylaxis: Pradaxa GI Prophylaxis: Designated medical POA if patient is not able to make medical decisions for themselves: I have reviewed the following farm service consultant notes: I have reviewed the results of the following tests: I have ordered the following tests: I have discussed the care of this patient with the following independent noel granda: MONISHA. Case management. I have independently interpreted the following test below: I have discussed the management of this patient with the following physician: Objective - Vital Signs Vital signs: Vital Signs Temp 97.5 F L 02/28/25 07:44 Pulse 62 02/28/25 07:44 Resp 17 02/28/25 07:44 BP 131/77 02/28/25 07:44 Pulse Ox 95 02/28/25 07:44 FiO2 Intake & Output 02/27/25 02/28/25 02/28/25 18:59 06:59 18:59 Intake Total 960 540 240 Output Total 850 580 125 Balance 110 -40 115 Intake: Oral 960 540 240 Output: Urine 850 580 125 Other: Voiding Method Urinal Urinal Urinal Diaper Diaper Diaper Incontinent Incontinent # Voids 2 - Labs CBC & Chem 7: 02/24/25 04:56 02/24/25 04:56
[2025-02-28] MEDS: DABIGATRAN 150 MG CAP PO SCH (20:29)
[2025-03-01] MEDS: HYDROcodone/APAP 10-325MG 1 EACH TAB PO SCH (06:42)
--- NOTE | 2025-03-01 14:08 | P.PN ---
Subjective Progress Note Date: 03/01/25 74 year old M with PMH of A Fib, Gout, HTN, chronic lower back pain presents with intractable back pain. Progressively getting worse over the past 4 months after sustaining a fall which resulted in him landing on his tailbone. Pain is 10/10, throbbing in nature with occasional radiation to bilateral lower extremities. Pain worse with movement and alleviated with rest. Takes [place] 10 Q2H at home. He denies any bladder or bowel incontinence, saddle anesthesia. No numbness/weakness/tingling of the extremities. He reports difficulties with his ADL and IADLs at home. In the ED he underwent extensive evaluation. BP 151/98, HR 87, T 98.4F, RR 21, 96% on RA. CBC, Coag panel, CMP significant for WBC 14.4, RBC 4.17, Hct 39.5, PT 14.2, INR 1.3, APTT 39.9, Na 135, bicarb 20, glu 151, Ca 8.2, T. Bili 1.7, alb 2.9. Ankle XR L shows edema. Knee XR L shows edema with questionable cortical step off along the medial tibial plateau. CT L spine shows no high grade spinal canal stenosis. Patient is admitted for intractable pain and Ortho evaluation. Ortho recommended L knee CT which showed no acute fracture or dislocation, small to moderate-sized suprapatellar joint effusion with hemarthrosis, prepatellar subcutaneous edema and small Fallon's cyst. Patient was fitted for knee and back brace per patient request. Pain management was able to do an epidural steroid injection. Psychiatry also consulted, patient does not have decision making capacity, he does have a DPOA on file. 02/28 Patient was seen and examined. Motivated to work with PT and OT able to stand up and pivot into a chair today. Patient is cleared for discharge and medically stable pending insurance authorization for SNF. 03/01 Patient was seen and examined. No acute events overnight. Patient is cleared for discharge and medically stable pending insurance authorization for SNF. BP 135/69, HR 70, RR 16, T 97.9F, 94% on RA. General: mild distress, appears at stated age Derm: warm, dry Head: atraumatic, normocephalic, symmetric Mouth: no lip lesion, mucus membranes moist Cardiovascular: S1 S2 irreg. No murmur. Lungs: Decreased BS bilaterally, no accessory muscle use Ext: no gross muscle atrophy, no edema, no contractures Neuro: No focal neurologic deficits. Psych: Alert and oriented. Based on my assessment of this patient, this patient meets a high complexity level of care. Intractable lower back pain with history of L3-5 fusion: Status post epidural steroid injection. Dilaudid 0.5 mg IV Q6H PRN pain, [place] 10 Q4H PRN pain. Fall precautions. PT and OT on board. Ortho and Pain management have signed off. Dementia: Psyc evaluated, patient does not have decision making capacity. Patient cannot leave AMA. L knee pain: CT L knee as above. Orthopedic Sx recommends no further intervention. Supratherapeutic INR: Likely due to Pradaxa. A Fib: Pradaxa 150 mg PO BID. Verapamil 180 mg PO BID. Gout: Allopurinol 100 mg PO BID. HTN: Lasix 40 mg PO QD. Losartan 25 mg PO QD. Resolved: Leukocytosis, Hyperbilirubinemia CODE STATUS: FULL CODE DVT Prophylaxis: Pradaxa GI Prophylaxis: Designated medical POA if patient is not able to make medical decisions for themselves: I have reviewed the following contaminated land consultant notes: I have reviewed the results of the following tests: I have ordered the following tests: I have discussed the care of this patient with the following independent historian: Case management. I have independently interpreted the following test below: I have discussed the management of this patient with the following physician: Objective - Vital Signs Vital signs: Vital Signs Temp 97.9 F 03/01/25 12:13 Pulse 70 03/01/25 12:13 Resp 16 03/01/25 12:13 BP 135/69 03/01/25 12:13 Pulse Ox 94 L 03/01/25 12:13 FiO2 Intake & Output 02/28/25 03/01/25 03/01/25 18:59 06:59 18:59 Intake Total 960 1080 720 Output Total 875 Balance 85 1080 720 Weight 111.13 kg Intake: Oral 960 1080 720 Output: Urine 875 Other: Voiding Method Urinal Urinal Urinal Diaper Diaper Diaper Incontinent Incontinent Incontinent # Voids 1 - Labs CBC & Chem 7: 02/24/25 04:56 02/24/25 04:56
[2025-03-02 07:53] VITALS: BP 149/76; PULSE 97; RESP 18; TEMP 97.6
--- NOTE | 2025-03-02 10:32 | P.DS ---
Providers Date of admission: 02/20/25 08:25 Expected date of discharge: 03/02/25 Attending physician: Trini Miles MD Consults: 02/19/25 16:40 Consult Physician Routine Consulting Provider: Yvonne Brar Consult Reason/Comments: Intractable low back pain Do you want consulting provider notified?: Yes 02/23/25 11:14 Consult Physician Routine Consulting Provider: Sean León Consult Reason/Comments: assess decision making capacity Do you want consulting provider notified?: Yes Primary care physician: [facility] Course: 74 year old M with PMH of A Fib, Gout, HTN, chronic lower back pain presents with intractable back pain. Progressively getting worse over the past 4 months after sustaining a fall which resulted in him landing on his tailbone. Pain is 10/10, throbbing in nature with occasional radiation to bilateral lower extremities. Pain worse with movement and alleviated with rest. Takes [place] 10 Q2H at home. He denies any bladder or bowel incontinence, saddle anesthesia. No numbness/weakness/tingling of the extremities. He reports difficulties with his ADL and IADLs at home. In the ED he underwent extensive evaluation. BP 151/98, HR 87, T 98.4F, RR 21, 96% on RA. CBC, Coag panel, CMP significant for WBC 14.4, RBC 4.17, Hct 39.5, PT 14.2, INR 1.3, APTT 39.9, Na 135, bicarb 20, glu 151, Ca 8.2, T. Bili 1.7, alb 2.9. Ankle XR L shows edema. Knee XR L shows edema with questionable cortical step off along the medial tibial plateau. CT L spine shows no high grade spinal canal stenosis. Patient is admitted for intractable pain and Ortho evaluation. Ortho recommended L knee CT which showed no acute fracture or dislocation, small to moderate-sized suprapatellar joint effusion with hemarthrosis, prepatellar subcutaneous edema and small Fallon's cyst. Patient was fitted for knee and back brace per patient request. Pain management was able to do an epidural steroid injection. Psychiatry also consulted, patient does not have decision making capacity, he does have a DPOA on file. 02/28 Patient was seen and examined. Motivated to work with PT and OT able to stand up and pivot into a chair today. Patient is cleared for discharge and medically stable pending insurance authorization for SNF. 03/01 Patient was seen and examined. No acute events overnight. Patient is cleared for discharge and medically stable pending insurance authorization for SNF. 03/02 Patient was seen and examined. Doing well. Accepted to SNF. Discharge Plan: [place] PRN for pain. Follow up with PCP within 1-2 days and Ortho/Pain management within 1 week of discharge. General: mild distress, appears at stated age Derm: warm, dry Head: atraumatic, normocephalic, symmetric Mouth: no lip lesion, mucus membranes moist Cardiovascular: S1 S2 irreg. No murmur. Lungs: Decreased BS bilaterally, no accessory muscle use Ext: no gross muscle atrophy, no edema, no contractures Neuro: No focal neurologic deficits. Psych: Alert and oriented. Discharge Diagnosis: Intractable lower back pain with history of L3-5 fusion: Status post epidural steroid injection. Dilaudid 0.5 mg IV Q6H PRN pain, [place] 10 Q4H PRN pain. Fall precautions. PT and OT on board. Ortho and Pain management have signed off. Dementia: Psyc evaluated, patient does not have decision making capacity. Patient cannot leave AMA. L knee pain: CT L knee as above. Orthopedic Sx recommends no further intervention. Supratherapeutic INR: Likely due to Pradaxa. A Fib: Pradaxa 150 mg PO BID. Verapamil 180 mg PO BID. Gout: Allopurinol 100 mg PO BID. HTN: Lasix 40 mg PO QD. Losartan 25 mg PO QD. Resolved: Leukocytosis, Hyperbilirubinemia This complex discharge took 35 minutes to complete. Patient Condition at Discharge: Stable Plan - Discharge Summary New Discharge Prescriptions: New Acetaminophen Tab [Tylenol] 650 mg PO Q6HR PRN tab PRN Reason: Mild Pain Or Fever > 100.5 Artificial Tears-Hypromellose [Artificial Tear Drops] 1 drops BOTH EYES TID PRN ml PRN Reason: Dry Eye(S) HYDROcodone/APAP 10-325MG [[place] 10-325] 1 each PO Q4H #18 tab Continue Losartan [Cozaar] 25 mg PO DAILY allopurinoL 100 mg PO BID Potassium Chloride ER [K-Dur 20] 20 meq PO DAILY Cetirizine HCl [Zyrtec] 10 mg PO DAILY Verapamil HCl [Verapamil ER] 180 mg PO BID Furosemide [Lasix] 40 mg PO DAILY Meclizine [Antivert] 25 mg PO TID PRN PRN Reason: Vertigo Dabigatran [Pradaxa] 150 mg PO BID Discontinued HYDROcodone/APAP 10-325MG [[place] 10-325] 1 tab PO Q2H MDD 8 tabs Discharge Medication List Cetirizine HCl [Zyrtec] 10 mg PO DAILY 02/19/25 [History] Dabigatran [Pradaxa] 150 mg PO BID 02/19/25 [History] Furosemide [Lasix] 40 mg PO DAILY 02/19/25 [History] Losartan [Cozaar] 25 mg PO DAILY 02/19/25 [History] Meclizine [Antivert] 25 mg PO TID PRN 02/19/25 [History] Potassium Chloride ER [K-Dur 20] 20 meq PO DAILY 02/19/25 [History] Verapamil HCl [Verapamil ER] 180 mg PO BID 02/19/25 [History] allopurinoL 100 mg PO BID 02/19/25 [History] Acetaminophen Tab [Tylenol] 650 mg PO Q6HR PRN tab 03/02/25 [Rx] Artificial Tears-Hypromellose [Artificial Tear Drops] 1 drops BOTH EYES TID PRN ml 03/02/25 [Rx] HYDROcodone/APAP 10-325MG [[place] 10-325] 1 each PO Q4H #18 tab 03/02/25 [Rx] Follow up Appointment(s)/Referral(s): [facility]] - 1 Week Ryan Andrea DO [Doctor of Osteopathic Medicine] - 1 Week Ryan Villalta DO [Primary Care Provider] - 1-2 days Discharge/Stand Alone Forms: [facility] Instructions Discharge Disposition: TRANSFER TO SNF/ECF
== END 2025-03-02 12:21 | DRG 552 ==
LOC: SUPCPDRO 14:27 → EC 14:27 → 5NMEDONC 16:40 → OBSVTOIN 02-20 08:25
PROVIDERS: ADMIT Family Medicine; ATTEND Family Medicine
PROC: 3E0R33Z Introduction of Anti-inflammatory into Spinal Canal, Percutaneous Approach (ICD-10-PCS; principal; 2025-02-25 09:00)
PROC: 3E0R3BZ Introduction of Anesthetic Agent into Spinal Canal, Percutaneous Approach (ICD-10-PCS; principal; 2025-02-25 09:00)
DX: M96.1 Postlaminectomy syndrome, not elsewhere classified (principal); I50.9 Heart failure, unspecified; I11.0 Hypertensive heart disease with heart failure; D64.9 Anemia, unspecified; G80.9 Cerebral palsy, unspecified; I48.91 Unspecified atrial fibrillation; D72.829 Elevated white blood cell count, unspecified; F03.90 Unspecified dementia, unspecified severity, without behavioral disturbance, psychotic disturbance, mood disturbance, and anxiety; M25.572 Pain in left ankle and joints of left foot; R01.1 Cardiac murmur, unspecified; M25.462 Effusion, left knee; E80.6 Other disorders of bilirubin metabolism; G89.29 Other chronic pain; M10.9 Gout, unspecified; R79.1 Abnormal coagulation profile; T45.515A Adverse effect of anticoagulants, initial encounter; F17.200 Nicotine dependence, unspecified, uncomplicated; Z79.01 Long term (current) use of anticoagulants; Z79.899 Other long term (current) drug therapy; Z98.1 Arthrodesis status
CPT/HCPCS: 36415; 62323; 72131; 80048; 80053; 85025; 85027; 85610; 85730; 96374; 96376; 99285